=== PATIENT | male | born 1950 | race Caucasian/White ===

== ENCOUNTER 2020-04-29 11:56 | Inpatient (IN) | payer MEDICARE, OTHER, SELFPAY ==
--- NOTE | 2020-04-29 | CT_ITS ---
EXAMINATION: CT HEAD WITHOUT CONTRAST CLINICAL INFORMATION: Brain metastases. Altered mental status. COMPARISON: 04/05/2020 --none available at the time of dictation. TECHNIQUE: Contiguous axial imaging was performed from the skull base to vertex without intravenous administration of contrast. This CT examination was performed using dose optimization techniques as appropriate, variously including the following: *Automated exposure control *Adjustment of mA and/or kV according to patient size (this includes techniques or standardized protocols for targeted exams where dose is matched to indication/reason for exam; i.e. extremities or head) *Use of iterative reconstruction technique DLP: 760 mGy-cm FINDINGS: There is a metastasis within the right paracentral norman measuring 2.8 cm with surrounding edema, which extends into the bilateral brachii pontis, and superiorly into the midbrain, and right cerebral peduncle. The fourth ventricle is partially effaced. No herniation pattern. No additional metastasis present within the left parietal lobe. No additional lesions are identified. No acute intracranial hemorrhage. No herniation pattern. No extra-axial fluid collections. Apart from the fourth ventricle, the jugular system normal in size and configuration. The mastoid air cells and visualized portions of the paranasal sinuses are well aerated. IMPRESSION: No acute intracranial pathology. Intracranial metastases redemonstrated within the norman and left parietal lobe. No herniation pattern. An addendum will be issued when previous imaging becomes available for comparison.
[2020-04-29 12:03] VITALS: PULSE 118; RESP 20; TEMP 37.1; O2SAT 97; BMI 27.6
--- NOTE | 2020-04-29 12:49 | ECG_ITS ---
Test Reason : weakness Blood Pressure : / mmHG Vent. Rate : 100 BPM Atrial Rate : 100 BPM P-R Int : 108 ms QRS Dur : 088 ms QT Int : 340 ms P-R-T Axes : 055 025 059 degrees QTc Int : 438 ms Sinus tachycardia with short MS Possible Left atrial enlargement Borderline ECG When compared with ECG of 05-APR-2020 13:36, Heart rate has increased Referred By: Camelia Cruz Electronically Signed By:JEREMIAH GOMEZ MD
[2020-04-29 12:52] VITALS: BP 142/73; PULSE 101; RESP 13; TEMP 36.9; O2SAT 95
--- NOTE | 2020-04-29 12:52 | XR_ITS ---
EXAMINATION: XR CHEST CLINICAL INFORMATION: Lung cancer, weakness COMPARISON: 04/05/2020 TECHNIQUE: Frontal view of the chest was obtained. FINDINGS: Decreased lung volumes with an ill-defined opacity in the right lower lobe, possibly representing a developing pneumonia. There is a diffuse interstitial prominence which appears chronic and unchanged. No effusion. Stable cardiomediastinal silhouette. A small elongated density in the left upper lobe is less conspicuous. Mediastinal adenopathy appears to be significantly improved when compared to the CT from 01/17/2020 IMPRESSION: Subtle right lower lobe opacity concerning for developing pneumonia.
--- NOTE | 2020-04-29 12:55 | ED_ITS ---
HPI - Weakness General Chief complaint: Weakness Stated complaint: GENERAL WEAKNESS Time Seen by Provider: 04/29/20 12:15 Source: patient and family History of Present Illness HPI Narrative: 69-year-old male with a PMH COPD, squamous cell carcinoma of the lung with newly found brain lesions, presenting to the ED for increasing generalized weakness, confusion, inability to ambulate, and left-sided numbness x 2 days. History mostly obtained from who reports patient has been on steroids, denies recent fall/head trauma. patient receives chemotherapy here with Dr. De Los Santos, and is supposed to start radiation therapy at [facility] next week for newfound brain Mets. Denies fever, chills, cough, CP/ SOB, abdominal pain, nausea /vomiting Related Data Home Medications Medication Instructions Recorded Confirmed albuterol sulfate [Ventolin HFA] 2 puff INHALATION Q4H PRN 04/20/20 04/20/20 oxycodone 5 mg PO Q4H PRN 04/20/20 04/20/20 prochlorperazine maleate 10 mg PO Q6-8H PRN 04/20/20 04/20/20 [Compazine] Previous Rx's Medication Instructions Recorded dexamethasone [Decadron] 4 mg PO BID #60 tab 04/24/20 Allergies Allergy/AdvReac Type Severity Reaction Status Date / Time No Known Allergies Allergy Verified 04/29/20 12:03 [No Known Allergies*] Review of Systems Review of Systems: Constitutional: No Weight loss, No Fever, No Chills, No Night Sweats, + Fatigue, + Malaise Cardiovascular: No Chest Pain, No SOB, No Orthopnea Respiratory: No Cough, No Sputum, No Wheezing, N Gastrointestinal: No Nausea, No Vomiting, No Diarrhea, No Constipation, No abdominal Pain Genitourinary: No Dysuria, No Urinary Frequency, No Hematuria, Musculoskeletal: No joint pain, No Myalgias, No Joint Swelling Skin: No Skin Lesions, No rash Neuro: + confusion, + Weakness, + Numbness, No Paresthesias, No Loss of Consciousness, No Headache Yes all other systems are reviewed and are negative Neurologic: Reports confusion and Denies Sensory deficit (Neuro) Psychiatric: Psychiatric: Reports confusion PMFSH Past Medical History Attestation statement: The following information was validated with the patient. Source: old records reviewed and obtained from family Medical History (Updated 04/29/20 @ 15:48 by HERLINDA Bowen) Lung cancer Social History Social History Alcohol intake: never Smoking Status: Former smoker Use of substances other than those prescribed or required for medical reasons: No Advance Directives: Yes Advance Directives on File: Yes Advance Directives Date on File: 07/21/19 Physical Exam Vital Signs: Vital Signs: Vital Signs Temp Pulse Resp BP Pulse Ox 04/29/20 14:38 98 18 145/76 H 95 04/29/20 12:52 98.4 F 101 H 13 142/73 H 95 04/29/20 12:03 98.7 F 118 H 20 97 Body Mass Index 27.6 Const: General: confusion, lethargic and tired appearing Orientation/consciousness: patient oriented x3, confusion and lethargic HENMT: Head: Yes normal to inspection Ears: hearing grossly normal bilaterally General nose exam: Normal external nose present Face and sinus: Yes normal facial exam Eyes: General: appearance normal, both eyes and all related structures EOM: EOMs intact bilaterally Neck: Neck: Yes normal visual inspection Resp: Effort & Inspection: normal respiratory effort Auscultation: breath sounds absent ( bibasilar) Cardio: Rate: regular rate Heart sounds: S1 normal heart sound present and S2 normal heart sound present GI: Inspection: Yes normal to inspection Palpation (GI): Soft to palpation, nontender, no guarding and not rigid Skin: Wounds: no wounds Neuro: General: patient oriented x3, CN's II-XI intact bilaterally, confusion and Unable to assess gait Gait exam (Neuro): Unable to assess gait Motor exam (neuro): 5/5 motor strength present throughout Sensory Exam: No Sensory deficit (Neuro) Coordination: [id number] test normal Extrem: General: Yes normal to inspection Course Course Course Narrative: - 1347-- improved leukocytosis of 16.5 (patient is on steroids-- unlikely acute infection), platelets 155, labs otherwise unremarkable - 1416-- lactate 2.3 noted > do not believe patient has severe sepsis, but due to being elderly /immunocompromise state will cover with dose of IV Zosyn - 1534-- head CT without acute intracranial pathology. Intracranial metastasis redemonstrated no herniation pattern - chest x-ray concerning for subtle right lower lobe opacity > will admit. Patient is still not meeting sepsis criteria due to chronic leukocytosis / steroid use - obtained records from [facility] recent MRI showing to intracranial metastatic lesions which were responsive to initiation of steroids , and plan is to proceed with stereotactic radiation > oncology consulted - spoke to Dr. De Los Santos, recommended admission for IV antibiotics, and patient to follow up on Friday for radiation at [facility] - spoke to hospitalist about patient, will get chest CT and admit MDM - Weakness MDM Narrative Medical decision making narrative: 69-year-old male with a PMH COPD, squamous cell carcinoma of the lung with newly found brain lesions, presenting to the ED for increasing generalized weakness, confusion, inability to ambulate, and left- sided numbness x 2 days. On exam tachycardic, fatigued, +intermittently confu sed, no focal neuro deficits appreciated. Concern for worsening brain Mets/intracranial edema/ herniation vs ? infectious etiology. Low concern for severe sepsis at this time plan: EKG, labs, CXR, head CT, UA, consult oncology Differential Diagnosis Differential diagnosis: Likely UTI, hypoglycemia and dehydration Lab Data Result diagrams: 04/29/20 12:58 04/29/20 12:58 Labs: Lab Results 04/29/20 04/29/20 04/29/20 Range/Units 12:58 12:58 13:16 WBC 16.5 H (4.8-10.8) X10*3/uL RBC 5.24 (4.60-5.80) X10*6/uL Hgb 15.4 (14.0-18.0) g/dl Hct 45.3 (42-52) % MCV 86.5 (80-98) fL MCH 29.4 (27.0-33.0) pg MCHC 34.0 (31.0-36.0) g/dl RDW 18.3 H (11.0-16.0) % Plt Count 155 L D (160-400) X10*3/uL MPV 7.7 L (9.4-12.4) fL Immature Gran % (Auto) 3.1 H (0.0-0.4) % Neut % (Auto) 84.8 H (45-73) % Lymph % (Auto) 6.8 L (20-40) % [place] % (Auto) 5.1 (2-11) % Eos % (Auto) 0.0 (0-4) % Baso % (Auto) 0.2 (0-2) % Lymph # (Auto) 1.1 L (1.2-4.9) X10*3/uL [place] # (Auto) 0.8 (0.1-1.2) X10*3/uL Eos # (Auto) 0.0 (0.0-0.4) X10*3/uL Baso # (Auto) 0.0 (0.0-0.2) X10*3/uL Abs Immat Gran (auto) 0.51 H (0.00-0.03) X10*3/uL Absolute Neuts (auto) 14.0 H (2.0-8.3) X10*3/uL Absolute Nucleated RBC 0.000 (0.0-0.012) X10*3/uL Nucleated RBC % (auto) 0.0 (0.0-0.2) /100WBC Sodium 133 L (135-145) mmol/L Potassium 4.6 (3.3-5.1) mmol/l Chloride 98 (96-108) mmol/L Carbon Dioxide 24 (22-29) mmol/L Anion Gap 16 (12-20) BUN 29 H (9-16) mg/dL Creatinine 0.71 (0.5-1.4) mg/dL Estim Creat Clear Calc 89.1 Estimated GFR > 60 Random Glucose 116 H (60-115) mg/dL Lactic Acid 2.3 H* (0.5-2.0) mmol/L Calcium 8.2 L (8.4-10.2) mg/dL Magnesium 1.9 (1.6-2.6) mg/dL Total Bilirubin 0.9 (0.0-1.0) mg/dL Direct Bilirubin 0.3 (0.0-0.5) mg/dL AST 24 (5-37) U/L ALT 69 H (0-40) U/L Alkaline Phosphatase 89 (39-117) U/L Total Protein 5.8 L (6.5-8.0) g/dL Albumin 3.2 L (3.5-5.0) g/dL Discharge Plan Discharge Clinical Impression: Pneumonia Prescriptions: No Action prochlorperazine maleate [Compazine] 10 mg Tablet 10 mg PO Q6-8H PRN (Reason: Nausea And Vomiting) RF: 0 oxycodone 5 mg Tablet 5 mg PO Q4H PRN (Reason: Pain) RF: 0 albuterol sulfate [Ventolin HFA] 90 mcg/actuation Hfa Aerosol Inhaler 2 puff INHALATION Q4H PRN (Reason: Shortness Of Breath Or Wheezing) RF: 0 dexamethasone [Decadron] 4 mg Tablet 4 mg PO BID Qty: 60 RF: 3
[2020-04-29 13:02] LABS: MANUAL DIFF FLAG NO
[2020-04-29 13:21] LABS: Basophils Percent Auto 0.2 % (0-2); Hematocrit 45.3 % (42-52); Hemoglobin 15.4 g/dl (14.0-18.0); Imm Gran Abs Auto 0.51 X10*3/uL (0.00-0.03); Imm Gran Pct Auto 3.1 % (0.0-0.4); Lymphocytes Absolute Auto 1.1 X10*3/uL (1.2-4.9); Lymphocytes Percent Auto 6.8 % (20-40); Mean Corpuscular Hemoglobin 29.4 pg (27.0-33.0); Mean Corpuscular Volume 86.5 fL (80-98); Mean Platelet Volume 7.7 fL (9.4-12.4); Monocytes Absolute Auto 0.8 X10*3/uL (0.1-1.2); Monocytes Percent Auto 5.1 % (2-11); Neutrophils Percent Auto 84.8 % (45-73); Platelet Count 155 X10*3/uL (160-400); Red Blood Count 5.24 X10*6/uL (4.60-5.80); Red Cell Distribution Width 18.3 % (11.0-16.0); White Blood Count 16.5 X10*3/uL (4.8-10.8)
[2020-04-29 13:28] LABS: Alanine Aminotransferase 69 U/L (0-40); Albumin Level 3.2 g/dL (3.5-5.0); Alkaline Phosphatase 89 U/L (39-117); Anion Gap 16 (12-20); Aspartate Amino Transferase 24 U/L (5-37); Bilirubin Direct 0.3 mg/dL (0.0-0.5); Bilirubin Total 0.9 mg/dL (0.0-1.0); Blood Urea Nitrogen 29 mg/dL (9-16); Calcium 8.2 mg/dL (8.4-10.2); Carbon Dioxide 24 mmol/L (22-29); Chloride 98 mmol/L (96-108); Creatinine Clr Calc Pharmacy 89.1; Estimated Glomerular Filt Rate > 60; Glucose Random 116 mg/dL (60-115); Magnesium 1.9 mg/dL (1.6-2.6); Potassium 4.6 mmol/l (3.3-5.1); Sodium 133 mmol/L (135-145); Total Protein 5.8 g/dL (6.5-8.0)
[2020-04-29 14:06] LABS: Lactic Acid 2.3 mmol/L (0.5-2.0)
[2020-04-29] MEDS: 0.9 % Sodium Chloride 1,000 ML 999 ML IVCONT (14:36)
[2020-04-29] MEDS: Piperacillin Sodium/Tazobactam 3.375 GM in 0.9 % Sodium Chloride 50 ML IV ×2 (14:37→21:15)
[2020-04-29 14:38] VITALS: BP 145/76; PULSE 98; RESP 18; O2SAT 95
[2020-04-29 15:21] LABS: Reflex Lactate? Lactic Acid Added
--- NOTE | 2020-04-29 15:55 | PC.NURSE ---
PT SLEEPING BUT EASILY AROUSABLE TO VOICE COMMAND, REPORTS NO PAIN AT THIS TIME, PT HAVING A HARD TIME ANSWERING QUESTIONS NEEDS TIME TO THING ABOUT HIS ANSWER AND WHAT HE IS BEING ASKED, VS STABLE, NS ON THE MONITOR
--- NOTE | 2020-04-29 16:21 | CT_ITS ---
EXAMINATION: CT CHEST WITHOUT CONTRAST CLINICAL INFORMATION: Lung cancer, evaluate for pneumonia. COMPARISON: Chest radiograph earlier today along with CTA chest 01/17/2020. TECHNIQUE: Multidetector volumetric CT imaging of the chest was done. Axial MIP volume rendering provided. Sagittal and coronal reformatted images were obtained. This CT examination was performed using dose optimization techniques as appropriate, variously including the following: *Automated exposure control *Adjustment of mA and/or kV according to patient size (this includes techniques or standardized protocols for targeted exams where dose is matched to indication/reason for exam; i.e. extremities or head). *Use of iterative reconstruction technique. DLP: 235 mGy-cm FINDINGS: LUNGS: Again seen are emphysematous changes diffusely with honeycombing/bronchiectasis at the lung bases. Increased opacity is present at both lung bases, right greater than left, slightly worse than noted in December 2019. Superimposed infection, especially on the right cannot be excluded. The irregular mass in the superior segment of the left lobe of the liver has considerably improved now measuring only 0.7 x 1.2 cm compared with 2.5 cm on the 01/17/2020 study. This presumably was inflammatory. The underlying mass is currently the size it was on older CT studies. No new suspicious lung masses are seen. Quality of the exam is degraded by motion artifact. MEDIASTINUM: There has been a dramatic improvement in the mediastinal adenopathy with marked decrease in size of the extensive mass seen at that time. Abnormality remains with a large right paratracheal node, subcarinal node and some left perihilar disease although without IV contrast is difficult. The heart size is normal. PLEURA: There is no pleural effusion. No pleural mass or thickening. AXILLA: A left axillary lymph node has increased in size since the prior study when it was barely perceptible now measuring 1.5 x 1.2 x 1.7 cm. No fatty jong is seen. UPPER ABDOMEN: A 2.3 cm rounded left adrenal mass is no longer present. A right-sided adrenal mass has increased in size measuring 3.3 x 2.8 cm (previously 3.0 x 2.4 cm). OSSEOUS STRUCTURES: Unremarkable. IMPRESSION: 1. Emphysematous changes with honeycombing/bronchiectasis present at both lung bases. Patchy density seen at both lung bases but more so on the right and superimposed infection cannot be excluded. 2. Marked improvement in mediastinal mass and mediastinal adenopathy. 3. Mixed improvement with resolution of left adrenal mass and increase in size of right adrenal mass. 4. Increase in size of left axillary lymph node.
--- NOTE | 2020-04-29 18:17 | P.HPIM_ITS ---
History of Present Illness Date of Service: 04/29/20 <Joy Beck NP - Last Filed: 04/30/20 13:27> Chief Complaint: Confusion <Joy Beck NP - Last Filed: 04/30/20 13:27> 69 year old man presenting with weakness and confusion. 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 He underwent chemotherapy and is scheduled to have radiation at [facility] next week. His initial diagnosis was in July 2019 after staging revealed metastatic disease including adrenal metastasis. He has been undergone chemotherapy and is followed at [facility] hematology. He has been more weak and confused recently. He was unable to answer questions appropriately. Chest CT showing emphysematous changes with bronchiectasis and patchy density in both lung bases more so on the right and superimposed infection possible. He was not noted to be febrile on presentation. He did have a mildly elevated white blood cell count. He was given vancomycin and Zosyn. He will be admitted for further management and treatment of healthcare associated pneumonia with acute encephalopathy. <Joy Beck NP - Last Filed: 04/30/20 13:27> Review of Systems Review of Systems: Denies any recent fever chills or decrease in appetite respiratory denies any shortness of breath coverage production cardiovascular is adjustment of any PND or edema gastrointestinal denies any dysphagia abdominal pain nausea vomiting or diarrhea genitourinary denies any dysuria frequency or hematuria musculoskeletal denies any joint pain or swelling neuropsych denies any weakness or seizures all other systems reviewed are negative <Joy Beck NP - Last Filed: 04/30/20 13:27> Neurologic: Reports confusion and Denies Sensory deficit (Neuro) <Joy Beck NP - Last Filed: 04/30/20 13:27> Psychiatric: Psychiatric: Reports confusion <Joy Beck NP - Last Filed: 04/30/20 13:27> [facility] Medical History: Medical History (Updated 04/30/20 @ 13:13 by Joy Beck NP) COPD (chronic obstructive pulmonary disease) Lung cancer <Joy Beck NP - Last Filed: 04/30/20 13:27> Social History: Social History Household Members: Spouse Housing: House Alcohol intake: never Smoking Status: Former smoker Use of substances other than those prescribed or required for medical reasons: Unknown Currently Displaying Signs/Symptoms of Drug Intoxication Withdrawal: No Advance Directives: Yes Advance Directives on File: Yes Advance Directives Date on File: 07/21/19 Do you have thoughts of harming others: None Do you have a plan to hurt others: No Plan Recently lost weight without trying: No service: No Current occupational status: retired <Joy Beck NP - Last Filed: 04/30/20 13:27> Meds Allergies/Adverse reactions: Allergies Allergy/AdvReac Type Severity Reaction Status Date / Time No Known Allergies Allergy Verified 04/29/20 12:03 [No Known Allergies*] <Joy Beck NP - Last Filed: 04/30/20 13:27> Home medications: Home Medications Medication Instructions Recorded Confirmed Type albuterol sulfate [Ventolin HFA] 2 puff INHALATION Q4H PRN 04/20/20 04/20/20 History oxycodone 5 mg PO Q4H PRN 04/20/20 04/20/20 History prochlorperazine maleate 10 mg PO Q6-8H PRN 04/20/20 04/20/20 History [Compazine] ascorbic acid (vitamin C) 500 mg PO DAILY 04/29/20 04/29/20 History ferrous sulfate 325 mg PO DAILY 04/29/20 04/29/20 History omeprazole 20 mg PO BID 04/29/20 04/29/20 History <Joy Beck NP - Last Filed: 04/30/20 13:27> Physical Exam Vital Signs and Narrative: Vital Signs: Last Vital Signs Temp 98.4 F 04/29/20 12:52 Pulse 98 04/29/20 14:38 Resp 18 04/29/20 14:38 BP 145/76 H 04/29/20 14:38 Pulse Ox 95 04/29/20 14:38 Body Mass Index 27.6 <Joy Beck NP - Last Filed: 04/30/20 13:27> Appearing in no acute distress head is normocephalic atraumatic eyes pupils are PERRLA sclera is anicteric mouth throat mucous membranes are intact and moist neck is supple no lymphadenopathy, no JVD noted lung sounds are clear to auscultation heart regular rate rhythm, clear S1, S2 positive bowel sounds, abdomen is soft, nontender neuro patient is alert x3, no focal deficits <Joy Beck NP - Last Filed: 04/30/20 13:27> Const: General: confusion <Joy Beck NP - Last Filed: 04/30/20 13:27> Orientation/consciousness: confusion <Joy Beck NP - Last Filed: 04/30/20 13:27> Neuro: General: confusion <Joy Beck NP - Last Filed: 04/30/20 13:27> Sensory Exam: No Sensory deficit (Neuro) <Joy Beck NP - Last Filed: 04/30/20 13:27> Results Labs Labs: Laboratory Tests 04/29/20 04/29/20 04/29/20 12:58 12:58 13:16 WBC 16.5 H RBC 5.24 Hgb 15.4 Hct 45.3 MCV 86.5 MCH 29.4 MCHC 34.0 RDW 18.3 H Plt Count 155 L D MPV 7.7 L Immature Gran % (Auto) 3.1 H Neut % (Auto) 84.8 H Lymph % (Auto) 6.8 L Dawson % (Auto) 5.1 Eos % (Auto) 0.0 Baso % (Auto) 0.2 Lymph # (Auto) 1.1 L Dawson # (Auto) 0.8 Eos # (Auto) 0.0 Baso # (Auto) 0.0 Abs Immat Gran (auto) 0.51 H Absolute Neuts (auto) 14.0 H Absolute Nucleated RBC 0.000 Nucleated RBC % (auto) 0.0 Sodium 133 L Potassium 4.6 Chloride 98 Carbon Dioxide 24 Anion Gap 16 BUN 29 H Creatinine 0.71 Estim Creat Clear Calc 89.1 Estimated GFR > 60 Random Glucose 116 H Lactic Acid 2.3 H* Calcium 8.2 L Magnesium 1.9 Total Bilirubin 0.9 Direct Bilirubin 0.3 AST 24 ALT 69 H Alkaline Phosphatase 89 Total Protein 5.8 L Albumin 3.2 L <Joy Beck NP - Last Filed: 04/30/20 13:27> Assessment and Plan (1) HCAP (healthcare-associated pneumonia): Status: Acute <Joy Beck NP - Last Filed: 04/30/20 13:27> (2) Non-small cell lung cancer metastatic to brain: Status: Acute <Joy Beck NP - Last Filed: 04/30/20 13:27> 69-year-old man admitted with healthcare associated pneumonia. He has history of non-small cell lung cancer with recently found lesions in the brain. This may also be contributing to some of his confusion. Healthcare associated pneumonia. Treat with vancomycin, Zosyn due to recent admission to [facility]. Continue supplemental oxygen. Follow blood cultures. Encephalopathy. Possibly related to infection versus worsening malignant brain lesions. Follow neuro status. Non-small cell lung cancer with metastasis to the brain. Followed by hematology [facility]. Scheduled for radiation at [facility] next week. COPD. No exacerbation. Albuterol as needed. GERD. Continue PPI. DVT prophylaxis with Lovenox. Discussed with Dr. Michelle Full code <Joy Beck NP - Last Filed: 04/30/20 13:27>
[2020-04-29 18:56] VITALS: BP 140/80; PULSE 87; RESP 14; TEMP 36.7; O2SAT 96
--- NOTE | 2020-04-29 18:57 | PC.NURSE ---
Report received from Vivian SEQUEIRA, PCT at bedside to draw repeat lactic. [facility]
[2020-04-29 19:22] LABS: Lactic Acid 1.9 mmol/L (0.5-2.0)
[2020-04-29 20:00] VITALS: BP 150/72; PULSE 83; RESP 18; TEMP 36.6; O2SAT 95
--- NOTE | 2020-04-29 20:08 | PC.NURSE ---
Report to the floor.
[2020-04-29 20:59] LABS: Appearance Urine CLEAR; Color Urine YELLOW; Glucose Urine UA NEG (NEG); Leukocyte Esterase Urine NEG (NEG); Nitrite Urine NEG (NEG); Urine Blood NEG (NEG); Urine Ketones NEG (NEG); Urine Protein NEG (NEG-TRACE)
[2020-04-29] MEDS: Omeprazole 20 MG CAPSULE.DR PO (21:23)
[2020-04-29] MEDS: vancomycin HCL 1,000 MG in 0.9 % Sodium Chloride 250 ML 180 MG IV (21:49)
[2020-04-29 23:54] VITALS: BP 139/81; PULSE 76; RESP 16; TEMP 36.6; O2SAT 95
[2020-04-30] VITALS (7 sets, daily range): BP systolic 109–142; BP diastolic 60–70; PULSE 69–130; RESP 16–22; TEMP 36.3–37.7; O2SAT 90–95
[2020-04-30 06:03] LABS: MANUAL DIFF FLAG NO
[2020-04-30] MEDS: Piperacillin Sodium/Tazobactam 3.375 GM in 0.9 % Sodium Chloride 50 ML IV ×3 (06:05→20:08)
[2020-04-30 06:11] LABS: Basophils Percent Auto 0.1 % (0-2); Eosinophils Percent Auto 0.1 % (0-4); Hematocrit 41.6 % (42-52); Hemoglobin 13.9 g/dl (14.0-18.0); Imm Gran Abs Auto 0.27 X10*3/uL (0.00-0.03); Lymphocytes Absolute Auto 1.7 X10*3/uL (1.2-4.9); Lymphocytes Percent Auto 12.9 % (20-40); Mean Corpuscular HGB Conc 33.4 g/dl (31.0-36.0); Mean Corpuscular Volume 86.8 fL (80-98); Mean Platelet Volume 7.7 fL (9.4-12.4); Monocytes Absolute Auto 0.6 X10*3/uL (0.1-1.2); Monocytes Percent Auto 4.5 % (2-11); Neutrophils Absolute Auto 10.8 X10*3/uL (2.0-8.3); Neutrophils Percent Auto 80.4 % (45-73); Platelet Count 116 X10*3/uL (160-400); Red Blood Count 4.79 X10*6/uL (4.60-5.80); Red Cell Distribution Width 18.4 % (11.0-16.0); White Blood Count 13.4 X10*3/uL (4.8-10.8)
[2020-04-30 06:43] LABS: Anion Gap 12 (12-20); Blood Urea Nitrogen 20 mg/dL (9-16); Calcium 7.8 mg/dL (8.4-10.2); Carbon Dioxide 27 mmol/L (22-29); Chloride 97 mmol/L (96-108); Creatinine Clr Calc Pharmacy 105.5; Estimated Glomerular Filt Rate > 60; Glucose Random 80 mg/dL (60-115); Potassium 4.2 mmol/l (3.3-5.1); Sodium 132 mmol/L (135-145)
[2020-04-30] MEDS: vancomycin HCL 1,000 MG in 0.9 % Sodium Chloride 250 ML 180 MG IV ×2 (10:19→21:29)
[2020-04-30] MEDS: Omeprazole 20 MG CAPSULE.DR PO ×2 (10:19→20:08)
[2020-04-30] MEDS: Ferrous Sulfate 324 MG TABLET.DR PO (10:19)
[2020-04-30] MEDS: Ascorbic Acid 500 MG TABLET PO (10:19)
[2020-04-30 12:44] LABS: SARS COV2 PCR INHOUSE NEGATIVE (Negative)
[2020-04-30] MEDS: Enoxaparin Sodium 40 MG/0.4 ML SYRINGE SUBCUT (15:07)
--- NOTE | 2020-04-30 15:37 | P.EN_ITS ---
Event Note Event Note: 69 year old man presenting with weakness and confusion. 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 He underwent chemotherapy and is scheduled to have radiation at [facility] . patient was initially brought because of confusion but on admission does not look seems to be much confused to me ED physician wanted him to add be admitted for pneumonia: patient denies any cough or fever or chills patient has WBC count but seems like better than before, chest CT shows ques tion of pneumonia. discussed with the -seems confused than his the you were discussing the baseline. Physical exam: cvs: rrr, [id number] , no murmur res: clear to auscultation ,no rhonchii or wheezing abd: no rebound or guarding ,nt, bs present. ext pulses present , no cyanosis neuro: axo3 , nonfocal. assessment and plan coordinated in a and P note Plan is continue antibiotics, COVID testing
--- NOTE | 2020-04-30 15:59 | P.PNIM_ITS ---
Subjective Subjective Date of Service: 04/30/20 Interval History: pneumonia Review of Systems confusion seems to be improved, denies any chest pain or sob . Physical Exam Vital Signs: Vital Signs: Vital Signs Temp Pulse Resp BP Pulse Ox 04/30/20 15:38 97.9 F 123 H 18 115/60 95 04/30/20 11:58 99.1 F 113 H 20 133/67 94 04/30/20 08:00 97.9 F 90 20 131/61 93 04/30/20 04:00 97.4 F 69 16 142/70 H 04/30/20 02:00 74 16 131/70 95 04/29/20 23:54 97.8 F 76 16 139/81 95 04/29/20 20:00 97.9 F 83 18 150/72 H 95 04/29/20 18:56 98.1 F 87 14 140/80 H 96 Body Mass Index 27.6 cvs: rrr, [id number] , no murmur res: clear to auscultation ,no rhonchii or wheezing abd: no rebound or guarding ,nt, bs present. ext pulses present , no cyanosis neuro: axo3 , nonfocal. Objective Data Current Medications Generic Name Dose Route Start Last Admin Trade Name Freq PRN Reason Stop Dose Admin Ascorbic Acid 500 mg 04/30/20 09:00 04/30/20 10:19 Ascorbic Acid 500 Mg Tablet PO 500 mg DAILY ITA Administration Enoxaparin Sodium 40 mg 04/30/20 14:00 04/30/20 15:07 Enoxaparin Sodium 40 Mg/0.4 Ml Syringe SUBCUT 40 mg Q24H ITA Administration Ferrous Sulfate 324 mg 04/30/20 09:00 04/30/20 10:19 Ferrous Sulfate 324 Mg Tablet. PO 324 mg DAILY ITA Administration Piperacillin Sod/Tazobactam 50 mls @ 100 mls/hr 04/29/20 21:00 04/30/20 13:30 Sod 3.375 gm/ Sodium Chloride IV Infused Q8H ITA Infusion Vancomycin HCl 1,000 mg/ 270 mls @ 180 mls/hr 04/29/20 22:00 04/30/20 11:52 Sodium Chloride IV Infused Q12H ITA Infusion Omeprazole 20 mg 04/29/20 21:00 04/30/20 10:19 Omeprazole 20 Mg Capsule. PO 20 mg BID ITA Administration Labs CBC & Chem 7: 04/30/20 05:03 05/01/20 06:08 Microbiology Microbiology Results: Microbiology 04/29/20 13:16 Blood - Venous Blood Culture - Preliminary No growth after 24 hours. 04/29/20 13:16 Blood - Venous Blood Culture - Preliminary No growth after 24 hours. Assessment and Plan (1) HCAP (healthcare-associated pneumonia): Status: Acute (2) Non-small cell lung cancer metastatic to brain: Status: Acute Assessment and Plan: 69-year-old man admitted with healthcare associated pneumonia. He has history of non-small cell lung cancer with recently found lesions in the brain. This may also be contributing to some of his confusion. Healthcare associated pneumonia. on vancomycin, Zosyn due to recent admission to [facility]. Continue supplemental oxygen. Follow blood cultures. Encephalopathy. Possibly related to infection versus worsening malignant brain lesions. : seems confusion improving significantly. Non-small cell lung cancer with metastasis to the brain. Followed by hematology [facility]. Scheduled for radiation at [facility] next week. COPD. No exacerbation. Albuterol as needed. GERD. Continue PPI. DVT prophylaxis with Lovenox. (3) Pneumonia: Status: Acute
[2020-05-01 03:45] VITALS: BP 112/58; PULSE 99; RESP 18; TEMP 36.8; O2SAT 94
[2020-05-01] MEDS: Piperacillin Sodium/Tazobactam 3.375 GM in 0.9 % Sodium Chloride 50 ML IV ×2 (06:37→14:01)
[2020-05-01 07:23] LABS: Anion Gap 11 (12-20); Blood Urea Nitrogen 19 mg/dL (9-16); Calcium 7.5 mg/dL (8.4-10.2); Carbon Dioxide 26 mmol/L (22-29); Chloride 97 mmol/L (96-108); Creatinine Clr Calc Pharmacy 98.9; Estimated Glomerular Filt Rate > 60; Glucose Random 106 mg/dL (60-115); Potassium 3.4 mmol/l (3.3-5.1); Sodium 131 mmol/L (135-145)
[2020-05-01 07:43] VITALS: BP 112/56; PULSE 97; RESP 20; TEMP 37; O2SAT 96
[2020-05-01] MEDS: Omeprazole 20 MG CAPSULE.DR PO (09:32)
[2020-05-01] MEDS: Ferrous Sulfate 324 MG TABLET.DR PO (09:33)
[2020-05-01] MEDS: Ascorbic Acid 500 MG TABLET PO (09:33)
[2020-05-01] MEDS: vancomycin HCL 1,000 MG in 0.9 % Sodium Chloride 250 ML 180 MG IV ×2 (09:33→21:05)
--- NOTE | 2020-05-01 11:30 | MHC.CM.PN ---
pt lives c his in their home. she helps care for him at home and will provide transport home at me. pt is in active radiation tx for mets. he currently has no svcs in the home. this may change as his medical care progresses. at this time dc plan is for to return home c his . cm to cont. to follow.
[2020-05-01 11:48] VITALS: BP 117/52; PULSE 110; RESP 18; TEMP 37.6; O2SAT 94
[2020-05-01 12:21] LABS: MRSA Nasal PCR NEGATIVE (Negative); SA Nasal PCR NEGATIVE (Negative)
[2020-05-01] MEDS: Enoxaparin Sodium 40 MG/0.4 ML SYRINGE SUBCUT (14:01)
[2020-05-01] MEDS: Amoxicillin/Potassium Clav 875 MG TABLET PO ×2 (15:45→22:29)
[2020-05-01 16:00] VITALS: BP 124/76; PULSE 64; RESP 18; TEMP 36.6; O2SAT 97
--- NOTE | 2020-05-01 16:47 | P.DS_ITS ---
DS: Providers Provider Date of admission: 04/29/20 19:25 Primary care physician: None Physician Consults: 05/01/20 13:31 Consult to Infectious Diseases Routine Consulting Provider: Chandu Ortez Reason for consultation: PNEUMONIA Has provider been notified: No DS: Diagnosis Discharge Diagnosis (1) Pneumonia: Status: Acute DS: Summary Hospital Course Hospital Course: HPI: 69-year-old male with a PMH COPD, squamous cell carcinoma of the lung with newly found brain lesions, presenting to the ED for increasing generalized weakness, confusion, inability to ambulate, and left-sided numbness x 2 days. History mostly obtained from who reports patient has been on steroids, denies recent fall/head trauma. patient receives chemotherapy here with Dr. De Los Santos, and is supposed to start radiation therapy at [facility] next week for newfound brain Mets. Denies fever, chills, cough, CP/ SOB, abdominal pain, nausea /vomiting. hospital course probable berman section: 69-year-old man admitted with possible pneumonia. He has history of non-small cell lung cancer with recently found lesions in the brain Follows in [facility] for radiation as well as oncology doctor noam. initially also had question of toxic metabolic encephalopathy question related to pneumonia. patient was initially started on IV Vanco and Zosyn - is WBC count seems improved, no no cough or phlegm or any respiratory symptoms. mother has fevers significant. blood culture pending with above antibiotic management patient seems improved- his mental status seems to be fine since the beginning, discussed with his to that just to make sure that he is at baseline, she concur that he is at baseline . discussed with infectious disease patient's antibiotics changed to p.o. doxycycline and Augmentin -please complete the course. Non-small cell lung cancer with metastasis to the brain. Followed by hematology With Dr. De Los Santos and [facility]. mild hyponatremia / slightly elevated ALT: Monitor renal function and elect rolytes as well as LFTs outpatient with PCP further management as per PCP. Time Spent with Patient Time attestation: Total time spent providing and/or coordinating discharge services:50 min Physical Exam Vital Signs: Vital Signs: Vital Signs Temp Pulse Resp BP Pulse Ox 05/01/20 16:00 97.9 F 64 18 124/76 97 05/01/20 11:48 99.7 F 110 H 18 117/52 L 94 05/01/20 07:43 98.6 F 97 20 112/56 L 96 05/01/20 03:45 98.3 F 99 18 112/58 L 94 04/30/20 23:32 97.8 F 106 H 20 109/62 93 04/30/20 19:08 100 F 130 H 19 118/67 90 L Body Mass Index 27.6 Physical exam: cvs: rrr, [id number] , no murmur res: clear to auscultation ,no rhonchii or wheezing abd: no rebound or guarding ,nt, bs present. ext pulses present , no cyanosis neuro: axo3 , nonfocal. DS: Data Data Completed and Pending Labs on day of discharge: Labs from last 24 hours 05/01/20 05/01/20 05/01/20 10:08 09:10 06:08 Sodium 131 L Potassium 3.4 Chloride 97 Carbon Dioxide 26 Anion Gap 11 L BUN 19 H Creatinine 0.64 Estim Creat Clear Calc 98.9 Estimated GFR > 60 Random Glucose 106 Calcium 7.5 L Nasal Screen MRSA (PCR) NEGATIVE Nasal S. aureus Screen NEGATIVE Nasal MRSA/S.aureus Interp SEE NOTE Vancomycin Trough 7.0 L Preliminary micro results at discharge 04/29/20 13:16 Blood Culture - Preliminary Blood - Venous No growth after 48 hours. 04/29/20 13:16 Blood Culture - Preliminary Blood - Venous No growth after 48 hours. Discharge Plan Discharge Patient Disposition: Home Health Service Referrals: [facility] [Outside] Physician,None [Primary Care Provider] - Discharge Medications: New doxycycline monohydrate 100 mg capsule 100 mg PO BID Qty: 14 RF: 0 amoxicillin-pot clavulanate [Augmentin] 875-125 mg tablet 1 tab PO Q12H Qty: 14 RF: 0 Continued prochlorperazine maleate [Compazine] 10 mg Tablet 10 mg PO Q6-8H PRN (Reason: Nausea And Vomiting) RF: 0 oxycodone 5 mg Tablet 5 mg PO Q4H PRN (Reason: Pain) RF: 0 albuterol sulfate [Ventolin HFA] 90 mcg/actuation Hfa Aerosol Inhaler 2 puff INHALATION Q4H PRN (Reason: Shortness Of Breath Or Wheezing) RF: 0 dexamethasone [Decadron] 4 mg Tablet 4 mg PO BID Qty: 60 RF: 3 ascorbic acid (vitamin C) 500 mg Tablet 500 mg PO DAILY RF: 0 ferrous sulfate 325 mg (65 mg iron) Tablet 325 mg PO DAILY RF: 0 omeprazole 20 mg Capsule,Delayed Release(Dr/Ec) 20 mg PO BID RF: 0 Discharge Orders: Discharge Order (Routine); Ordered 05/01/20 Ordered By: Dedrick Michelle Diet: advance to your usual diet Activity on Discharge: As tolerated Visit Report Forms: Patient Portal Discharge page Care Plan Goals: patient was initially admitted due to question of confusion and pneumonia: Subsequently started on IV antibiotics -significantly improved afterwards patient. switched to po doxycycline and augmentin-please complete course of antibiotics. Health Concerns: as above. Plan of Treatment: as above.
[2020-05-01 19:36] VITALS: BP 110/55; PULSE 113; RESP 20; TEMP 38; O2SAT 92
[2020-05-01 23:05] VITALS: BP 116/56; PULSE 101; RESP 18; TEMP 36.2; O2SAT 92
[2020-05-02 03:15] VITALS: BP 109/54; PULSE 100; RESP 16; TEMP 36.4; O2SAT 92
[2020-05-02 08:00] VITALS: BP 131/61; PULSE 98; RESP 18; TEMP 36.2; O2SAT 94
[2020-05-02] MEDS: Amoxicillin/Potassium Clav 875 MG TABLET PO (09:29)
[2020-05-02] MEDS: Omeprazole 20 MG CAPSULE.DR PO (09:29)
[2020-05-02] MEDS: Ferrous Sulfate 324 MG TABLET.DR PO (09:29)
[2020-05-02] MEDS: Ascorbic Acid 500 MG TABLET PO (09:29)
--- NOTE | 2020-05-02 10:24 | MHC.CM.PN ---
CM met with and patient at the bedside who reports patient lives with son and who reports son and live with patient and help take care of him. Patient is also active with [facility]. Son Bubba reports he is able to transport patient to and from radiation treatment. Bubba will be here today at 12pm for discharge and transport to [facility] for radiation treatment. Patient, , son and nurse are all updated to discharge plan.
--- NOTE | 2020-05-02 12:26 | W.PM.IDCN ---
History of Present Illness Data of Consult Service Date: 05/02/20 Requesting physician: Dedrick Michelle Primary Care Provider: None Physician HPI Reason for consult: shortness of breath He presents 3 days ago with weakness and confusion He has known squamous cell cancer from lung with mets to brain He has some dry cough He has some fever or chills at home He presents and has CT scan of chest showing some bibasilar infiltrates He was started on Vancomycin and Zosyn,stop Vancomycin as MRSA is negative nasal Review of Systems Review of Systems: Yes all other systems are reviewed and are negative Neurologic: Reports confusion and Denies Sensory deficit (Neuro) Psychiatric: Psychiatric: Reports confusion PMFSH Past Medical History Medical History COPD (chronic obstructive pulmonary disease) Lung cancer Family History Family history: reviewed and not pertinent Social History Social History Household Members: Spouse Housing: House Alcohol intake: never Smoking Status: Former smoker Use of substances other than those prescribed or required for medical reasons: Unknown Currently Displaying Signs/Symptoms of Drug Intoxication Withdrawal: No Advance Directives: Yes Advance Directives on File: Yes Advance Directives Date on File: 07/21/19 Do you have thoughts of harming others: None Do you have a plan to hurt others: No Plan Recently lost weight without trying: No service: No Current occupational status: retired Meds Allergies Allergy/AdvReac Type Severity Reaction Status Date / Time No Known Allergies Allergy Verified 04/29/20 12:03 [No Known Allergies*] Home Medications Medication Instructions Recorded Confirmed Type albuterol sulfate [Ventolin HFA] 2 puff INHALATION Q4H PRN 04/20/20 04/20/20 History oxycodone 5 mg PO Q4H PRN 04/20/20 04/20/20 History prochlorperazine maleate 10 mg PO Q6-8H PRN 04/20/20 04/20/20 History [Compazine] ascorbic acid (vitamin C) 500 mg PO DAILY 04/29/20 04/29/20 History ferrous sulfate 325 mg PO DAILY 04/29/20 04/29/20 History omeprazole 20 mg PO BID 04/29/20 04/29/20 History Physical Exam Vital Signs: Vital Signs: Vital Signs Temp Pulse Resp BP Pulse Ox 05/02/20 08:00 97.1 F 98 18 131/61 94 05/02/20 03:15 97.5 F 100 16 109/54 L 92 05/01/20 23:05 97.2 F 101 H 18 116/56 L 92 05/01/20 19:36 100.4 F 113 H 20 110/55 L 92 05/01/20 16:00 97.9 F 64 18 124/76 97 Body Mass Index 27.6 Const: General: confusion Orientation/consciousness: confusion HENMT: Head: Yes normal to inspection Teeth and gingiva: abnormal tooth and associated gingiva Throat: Yes posterior oropharynx normal Resp: Auscultation: rhonchi lower bilaterally Cardio: Rate: regular rate Rhythm: regular rhythm GI: Inspection: Yes normal to inspection Neuro: General: confusion Sensory Exam: No Sensory deficit (Neuro) Extrem: General: Yes normal to inspection Psych: Appearance: grossly normal Affect: normal affect Attitude: cooperative Thought process: Normal thought process present Assessment and Plan (1) HCAP (healthcare-associated pneumonia): Status: Acute (2) Non-small cell lung cancer metastatic to brain: Status: Acute (3) Pneumonia: Status: Acute There is concern over gram negative,anerobes and less likely gram positive He has basilar infilrates There is less likely fungal infection He is improving on IV Zosyn and Vancomycin Suggest Po Augmentin and Doxycycline for a week F/U per Oncology
== END 2020-05-02 12:23 | disposition home health service (06) | DRG 194 ==
LOC: HO.ED 16:56 → HO.IMC 19:52
PROVIDERS: Emergency Medicine Emergency Medical Services; Nurse Practitioner Acute Care; Physician Assistant; Admitting Provider Internal Medicine; Emergency Provider Emergency Medicine; Visit Provider Internal Medicine
DX: J18.9 Pneumonia, unspecified organism (principal); C34.90 Malignant neoplasm of unspecified part of unspecified bronchus or lung; C79.31 Secondary malignant neoplasm of brain; C79.70 Secondary malignant neoplasm of unspecified adrenal gland; E87.1 Hypo-osmolality and hyponatremia; J44.9 Chronic obstructive pulmonary disease, unspecified; Z20.828 Contact with and (suspected) exposure to other viral communicable diseases; K21.9 Gastro-esophageal reflux disease without esophagitis; Z79.891 Long term (current) use of opiate analgesic; Z79.899 Other long term (current) drug therapy
CPT/HCPCS: 36415; 70450; 71045; 71250; 80048; 80076; 80202; 81003; 83605; 83735; 85025; 87040; 87635; 87640; 87641; 93005; 96365; 99285; J1650

== ENCOUNTER 2020-05-15 14:14 | Inpatient (IN) | payer MEDICARE, OTHER, SELFPAY ==
[2020-05-15 14:42] VITALS: BP 137/83; PULSE 103; RESP 18; TEMP 36.6; O2SAT 95; BMI 21.8
--- NOTE | 2020-05-15 14:50 | ED_ITS ---
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 Mode of arrival: ambulatory Limitations: no limitations History of Present Illness MD complaint: weakness, constipation, lower abdominal pain Onset (ago): day(s) (2) Location: abdomen Radiation: non-radiation Severity: moderate Quality: aching Pain Consistency: constant Relieving factors: none Exacerbating factors: none Associated symptoms: loss of appetite, malaise and weakness Treatments prior to arrival: other (just had radiation today - has lung cancer with mets to the brain) Related Data Home Medications Medication Instructions Recorded Confirmed albuterol sulfate [Ventolin HFA] 2 puff INHALATION Q4H PRN 04/20/20 04/20/20 oxycodone 5 mg PO Q4H PRN 04/20/20 04/20/20 prochlorperazine maleate 10 mg PO Q6-8H PRN 04/20/20 04/20/20 [Compazine] ascorbic acid (vitamin C) 500 mg PO DAILY 04/29/20 04/29/20 ferrous sulfate 325 mg PO DAILY 04/29/20 04/29/20 omeprazole 20 mg PO BID 04/29/20 04/29/20 Previous Rx's Medication Instructions Recorded dexamethasone [Decadron] 4 mg PO BID #60 tab 04/24/20 amoxicillin-pot clavulanate 1 tab PO Q12H #14 tab 05/01/20 [Augmentin] doxycycline monohydrate 100 mg PO BID #14 cap 05/01/20 Allergies Allergy/AdvReac Type Severity Reaction Status Date / Time No Known Allergies Allergy Verified 04/29/20 12:03 [No Known Allergies*] Review of Systems Review of Systems: Constitutional : No Weight loss, No Fever, No Chills ENT/Mouth : No sore throat, No Rhinorrhea Eyes: No Swelling, No Redness Cardiovascular : No Chest Pain, No SOB, NoEdema Respiratory : No Cough, No Sputum, No Wheezing Gastrointestinal : Positive Nausea, no Vomiting, no Diarrhea, positive abdominal Pain, No Hematochezia, No Melena, positive constipation Genitourinary : No Dysuria, No Urinary Frequency, No Hematuria, No Urgency Musculoskeletal : No joint pain, No Myalgias, No Joint Swelling Skin : No Skin Lesions, No rash Neuro : No Weakness, No Numbness, No Dizziness, No Headache Psych : No Anxiety/Panic, No Depression Heme/Lymph: No Bruising, No Lymphadenopathy Endocrine : No Polyuria, No Polydipsia All other systems reviewed and are negative. [facility] Past Medical History Medical History COPD (chronic obstructive pulmonary disease) HCAP (healthcare-associated pneumonia) Lung cancer Non-small cell lung cancer metastatic to brain Social History Social History Household Members: Spouse Housing: House Alcohol intake: never Smoking Status: Former smoker Advance Directives: Yes Advance Directives on File: Yes Advance Directives Date on File: 07/21/19 service: No Current occupational status: retired Physical Exam Vital Signs: Vital Signs: Vital Signs Temp Pulse Resp BP Pulse Ox 05/15/20 15:59 16 05/15/20 14:42 97.8 F 103 H 18 137/83 95 Body Mass Index 21.8 Appearance: Alert. Oriented X3. Mild acute distress. Eyes: Pupils equal, round and reactive to light. ENT: Pharynx severely dry MM Neck: Normal inspection. Neck supple. CVS: Normal heart rate and rhythm. Pulses normal. Respiratory: No respiratory distress. Breath sounds normal. Abdomen: Soft and distended, lower abdominal ttp, no rebound or guarding Skin: Skin warm and dry. Normal skin color. Normal skin turgor. Extremities: No lower extremity edema. No calf ttp Neuro: Oriented X 3. No motor deficit. No sensory deficit. Course Course Course Narrative: patient pending workup, signed out to Dr. Ariza pending labs and CT scan Medical Decision Making [facility] Narrative Medical decision making narrative: 69 yo male with lung cancer and mets to the brain just underwent radiation today comes in with weakness, lower abdominal pain and constipation - IVF, IV morphine, labs, cultures, CT scan of abdomen ordered, dispo per results and findings Lab Data Result diagrams: 05/15/20 15:52 05/15/20 15:52 Labs: Lab Results 05/15/20 Range/Units 15:52 WBC 12.4 H (4.8-10.8) X10*3/uL RBC 5.38 (4.60-5.80) X10*6/uL Hgb 15.7 (14.0-18.0) g/dl Hct 45.9 (42-52) % MCV 85.3 (80-98) fL MCH 29.2 (27.0-33.0) pg MCHC 34.2 (31.0-36.0) g/dl RDW 15.7 (11.0-16.0) % Plt Count 138 L (160-400) X10*3/uL MPV 7.8 L (9.4-12.4) fL Immature Gran % (Auto) 4.2 H (0.0-0.4) % Neut % (Auto) 73.7 H (45-73) % Lymph % (Auto) 12.6 L (20-40) % Wallace % (Auto) 9.2 (2-11) % Eos % (Auto) 0.0 (0-4) % Baso % (Auto) 0.3 (0-2) % Lymph # (Auto) 1.6 (1.2-4.9) X10*3/uL Wallace # (Auto) 1.1 (0.1-1.2) X10*3/uL Eos # (Auto) 0.0 (0.0-0.4) X10*3/uL Baso # (Auto) 0.0 (0.0-0.2) X10*3/uL Abs Immat Gran (auto) 0.52 H (0.00-0.03) X10*3/uL Absolute Neuts (auto) 9.2 H (2.0-8.3) X10*3/uL Absolute Nucleated RBC 0.000 (0.0-0.012) X10*3/uL Nucleated RBC % (auto) 0.0 (0.0-0.2) /100WBC ECG Data Attestation: I personally reviewed and interpreted this ECG as follows: Interpretation: Rate: 100 Rhythm: NSR. [place]: normal Normal P waves. Normal REED. Normal QRS complex. ST T wave : nonspecific qTC: normal prior studies: artifact present, no acute ischemia The study has been interpreted contemporaneously by me. . Discharge Plan Discharge Clinical Impression: Abdominal pain Prescriptions: No Action prochlorperazine maleate [Compazine] 10 mg Tablet 10 mg PO Q6-8H PRN (Reason: Nausea And Vomiting) RF: 0 oxycodone 5 mg Tablet 5 mg PO Q4H PRN (Reason: Pain) RF: 0 albuterol sulfate [Ventolin HFA] 90 mcg/actuation Hfa Aerosol Inhaler 2 puff INHALATION Q4H PRN (Reason: Shortness Of Breath Or Wheezing) RF: 0 dexamethasone [Decadron] 4 mg Tablet 4 mg PO BID Qty: 60 RF: 3 ascorbic acid (vitamin C) 500 mg Tablet 500 mg PO DAILY RF: 0 ferrous sulfate 325 mg (65 mg iron) Tablet 325 mg PO DAILY RF: 0 omeprazole 20 mg Capsule,Delayed Release(Dr/Ec) 20 mg PO BID RF: 0 doxycycline monohydrate 100 mg capsule 100 mg PO BID Qty: 14 RF: 0 amoxicillin-pot clavulanate [Augmentin] 875-125 mg tablet 1 tab PO Q12H Qty: 14 RF: 0
--- NOTE | 2020-05-15 14:51 | CT_ITS ---
EXAMINATION: CT ABDOMEN AND PELVIS WITHOUT CONTRAST CLINICAL INFORMATION: Constipation. Abdominal pain.. Neoplasm left lower lobe. Metastatic nodule in the left adrenal gland COMPARISON: Multiple prior studies including PET/CT study 08/10/2019. CT scan abdomen pelvis 08/02/2019 TECHNIQUE: Multidetector volumetric imaging was performed from the superior aspect of the liver through the pubic symphysis. Sagittal and coronal reformatted images were obtained on the technologist's workstation. This CT examination was performed using dose optimization techniques as appropriate, variously including the following: *Automated exposure control *Adjustment of mA and/or kV according to patient size (this includes techniques or standardized protocols for targeted exams where dose is matched to indication/reason for exam; i.e. extremities or head) *Use of iterative reconstruction technique DLP: 432 mGy-cm FINDINGS: LUNG BASES: Focal consolidation at the anterior right lung base similar CT chest 04/29/2020. Bibasilar honeycombing at lung bases posteriorly similar prior study. LIVER, GALLBLADDER, AND BILIARY TREE: The liver is normal in size, shape, and attenuation. No focal hepatic lesion or biliary ductal dilatation is present. The gallbladder is unremarkable with no evidence of radiopaque gallstones, gallbladder wall thickening, or obvious pericholecystic inflammatory changes. PANCREAS: Unremarkable. SPLEEN: Unremarkable. ADRENAL GLANDS: Right adrenal gland is enlarged. The right adrenal gland measures 3.5 x 3 cm axial image 24 series 3. The right degenerative gland is normal in size on the CAT scan of 08/10/2019 PET/CT exam. Right adrenal gland has not significantly changed in size since 04/29/2020 CT of chest. No mass in the left adrenal gland. KIDNEYS AND URETERS: The kidneys are normal in size, shape, and attenuation. No hydronephrosis, hydroureter, or calculi seen. No perinephric stranding. BLADDER: Unremarkable. GASTROINTESTINAL TRACT: Large volume of stool in the distal rectum sigmoid. Rectosigmoid distended to a diameter 7.5 cm to the level the hips. There is no edema of the wall the rectum and sigmoid and no edema in the presacral space to suggest stercoral colitis. There is a large volume of stool throughout the remainder the colon as well. No acute change of the bowel wall. No bowel obstruction. The appendix is normal. The small bowel loops are normal. ABDOMINAL WALL: No significant hernia is appreciated. LYMPH NODES: Normal. VASCULAR: Scattered vascular calcifications throughout the abdomen and pelvis. 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 OSSEOUS STRUCTURES: Unremarkable. CT/CT abdomen pelvis wo con IMPRESSION: 1. Stable enlarged right adrenal gland consistent with metastatic disease. 2. Large volume of stool in the colon. No acute change of the bowel wall. No bowel obstruction. 3. Stable focal consolidation at the anterior right lung base. Honeycombing at lung bases bilaterally.
--- NOTE | 2020-05-15 14:52 | ECG_ITS ---
Test Reason : WEAKNESS Blood Pressure : / mmHG Vent. Rate : 100 BPM Atrial Rate : 100 BPM P-R Int : 112 ms QRS Dur : 088 ms QT Int : 346 ms P-R-T Axes : 065 008 086 degrees QTc Int : 446 ms Sinus tachycardia Nonspecific T wave abnormality Lateral leads Low voltage QRS Abnormal ECG When compared with ECG of 29-APR-2020 14:13, Nonspecific T wave abnormality now evident in Lateral leads Referred By: Preethi Burks Electronically Signed By:JEREMIAH GOMEZ MD
--- NOTE | 2020-05-15 14:53 | XR_ITS ---
EXAMINATION: XR CHEST CLINICAL INFORMATION: Cough and weakness. COMPARISON: None TECHNIQUE: Frontal view of the chest was obtained. FINDINGS: No significant abnormality is noted involving the heart, lungs, mediastinum, bony thorax or soft tissues. XR/XR chest 1V IMPRESSION: Unremarkable chest exam.
[2020-05-15] MEDS: 0.9 % Sodium Chloride 1,000 ML 999 ML IVCONT ×2 (15:56→17:15)
[2020-05-15 15:59] VITALS: RESP 16
[2020-05-15] MEDS: Morphine Sulfate 4 MG/ML CARTRIDGE IVPUSH (15:59)
[2020-05-15] MEDS: ondansetron HCL 4 MG/2 ML VIAL IVPUSH (15:59)
[2020-05-15 16:01] LABS: MANUAL DIFF FLAG NO
[2020-05-15 16:04] LABS: Basophils Percent Auto 0.3 % (0-2); Hematocrit 45.9 % (42-52); Hemoglobin 15.7 g/dl (14.0-18.0); Imm Gran Abs Auto 0.52 X10*3/uL (0.00-0.03); Imm Gran Pct Auto 4.2 % (0.0-0.4); Lymphocytes Absolute Auto 1.6 X10*3/uL (1.2-4.9); Lymphocytes Percent Auto 12.6 % (20-40); Mean Corpuscular HGB Conc 34.2 g/dl (31.0-36.0); Mean Corpuscular Hemoglobin 29.2 pg (27.0-33.0); Mean Corpuscular Volume 85.3 fL (80-98); Mean Platelet Volume 7.8 fL (9.4-12.4); Monocytes Absolute Auto 1.1 X10*3/uL (0.1-1.2); Monocytes Percent Auto 9.2 % (2-11); Neutrophils Absolute Auto 9.2 X10*3/uL (2.0-8.3); Neutrophils Percent Auto 73.7 % (45-73); Platelet Count 138 X10*3/uL (160-400); Red Blood Count 5.38 X10*6/uL (4.60-5.80); Red Cell Distribution Width 15.7 % (11.0-16.0); White Blood Count 12.4 X10*3/uL (4.8-10.8)
[2020-05-15 16:21] LABS: INTERNATIONAL NORM RATIO 1.1 (0.9-1.1); Prothrombin Time 12.8 SEC (10.8-13.0)
[2020-05-15 16:25] LABS: Anion Gap 14 (12-20); Blood Urea Nitrogen 26 mg/dL (9-16); Calcium 8.3 mg/dL (8.4-10.2); Carbon Dioxide 26 mmol/L (22-29); Chloride 95 mmol/L (96-108); Creatinine Clr Calc Pharmacy 104.5; Estimated Glomerular Filt Rate > 60; Glucose Random 110 mg/dL (60-115); Potassium 4.2 mmol/l (3.3-5.1); Sodium 131 mmol/L (135-145)
[2020-05-15 16:29] LABS: Partial Thromboplastin Time 23.5 SEC (24.1-38.0)
[2020-05-15 16:35] LABS: Lactic Acid 2.2 mmol/L (0.5-2.0)
[2020-05-15 16:37] LABS: Troponin-I High Sensitivity 9.4 ng/L (<3.5-35.0)
[2020-05-15 16:47] LABS: Alanine Aminotransferase 65 U/L (0-40); Albumin Level 3.3 g/dL (3.5-5.0); Alkaline Phosphatase 107 U/L (39-117); Aspartate Amino Transferase 26 U/L (5-37); Bilirubin Direct 0.4 mg/dL (0.0-0.5); Bilirubin Total 1.2 mg/dL (0.0-1.0); Lipase 37 U/L (8-78); Magnesium 2.1 mg/dL (1.6-2.6); Total Protein 6.2 g/dL (6.5-8.0)
[2020-05-15 17:58] LABS: Reflex Lactate? Lactic Acid Added
[2020-05-15 17:59] VITALS: BP 140/75; PULSE 81; RESP 14; TEMP 36.5; O2SAT 96
--- NOTE | 2020-05-15 18:57 | ED.GENADULT ---
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 Mode of arrival: ambulatory Limitations: no limitations History of Present Illness Location: abdomen Quality: aching Relieving factors: none Exacerbating factors: none Associated symptoms: loss of appetite, malaise and weakness Treatments prior to arrival: other (just had radiation today - has lung cancer with mets to the brain) Related Data Home Medications Medication Instructions Recorded Confirmed albuterol sulfate [Ventolin HFA] 2 puff INHALATION Q4H PRN 04/20/20 05/15/20 oxycodone 5 mg PO Q4H PRN 04/20/20 05/15/20 prochlorperazine maleate 10 mg PO Q6H PRN 04/20/20 05/15/20 [Compazine] ascorbic acid (vitamin C) 500 mg PO DAILY 04/29/20 05/15/20 ferrous sulfate 325 mg PO DAILY 04/29/20 05/15/20 omeprazole 20 mg PO BID@0630,1630 04/29/20 05/15/20 dexamethasone [Decadron] 2 mg PO BID 05/15/20 05/15/20 Allergies Allergy/AdvReac Type Severity Reaction Status Date / Time No Known Allergies Allergy Verified 04/29/20 12:03 [No Known Allergies*] [facility] Past Medical History Medical History COPD (chronic obstructive pulmonary disease) HCAP (healthcare-associated pneumonia) Lung cancer Non-small cell lung cancer metastatic to brain Social History Social History Household Members: Spouse Housing: House Alcohol intake: never Smoking Status: Former smoker Use of substances other than those prescribed or required for medical reasons: No Advance Directives: Yes Advance Directives on File: Yes Advance Directives Date on File: 07/21/19 service: No Current occupational status: retired Physical Exam Vital Signs: Vital Signs: Vital Signs Temp Pulse Resp BP Pulse Ox 05/15/20 20:00 98 F 90 18 130/64 94 05/15/20 17:59 97.7 F 81 14 140/75 H 96 05/15/20 15:59 16 05/15/20 14:42 97.8 F 103 H 18 137/83 95 Body Mass Index 21.8 Course Course Course Narrative: 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 Rectal exam showed soft stool lying in the rectum. Patient has elevated lactic acid 2.2 which is type B , patient is not septic patient feels very weak unable to ambulate or sit in the bed even without any help will give him Fleet enema plan to admit for increased lethargic and failure to thrive Medical Decision Making Lab Data Result diagrams: 05/15/20 15:52 05/15/20 15:52 Labs: Lab Results 05/15/20 05/15/20 05/15/20 Range/Units 15:52 15:52 15:52 WBC 12.4 H (4.8-10.8) X10*3/uL RBC 5.38 (4.60-5.80) X10*6/uL Hgb 15.7 (14.0-18.0) g/dl Hct 45.9 (42-52) % MCV 85.3 (80-98) fL MCH 29.2 (27.0-33.0) pg MCHC 34.2 (31.0-36.0) g/dl RDW 15.7 (11.0-16.0) % Plt Count 138 L (160-400) X10*3/uL MPV 7.8 L (9.4-12.4) fL Immature Gran % (Auto) 4.2 H (0.0-0.4) % Neut % (Auto) 73.7 H (45-73) % Lymph % (Auto) 12.6 L (20-40) % [place] % (Auto) 9.2 (2-11) % Eos % (Auto) 0.0 (0-4) % Baso % (Auto) 0.3 (0-2) % Lymph # (Auto) 1.6 (1.2-4.9) X10*3/uL [place] # (Auto) 1.1 (0.1-1.2) X10*3/uL Eos # (Auto) 0.0 (0.0-0.4) X10*3/uL Baso # (Auto) 0.0 (0.0-0.2) X10*3/uL Abs Immat Gran (auto) 0.52 H (0.00-0.03) X10*3/uL Absolute Neuts (auto) 9.2 H (2.0-8.3) X10*3/uL Absolute Nucleated RBC 0.000 (0.0-0.012) X10*3/uL Nucleated RBC % (auto) 0.0 (0.0-0.2) /100WBC PT 12.8 (10.8-13.0) SEC INR 1.1 (0.9-1.1) APTT 23.5 L (24.1-38.0) SEC Sodium 131 L (135-145) mmol/L Potassium 4.2 D (3.3-5.1) mmol/l Chloride 95 L (96-108) mmol/L Carbon Dioxide 26 (22-29) mmol/L Anion Gap 14 (12-20) BUN 26 H (9-16) mg/dL Creatinine 0.65 (0.5-1.4) mg/dL Estim Creat Clear Calc 104.5 Estimated GFR > 60 Random Glucose 110 (60-115) mg/dL Lactic Acid (0.5-2.0) mmol/L Calcium 8.3 L (8.4-10.2) mg/dL Magnesium 2.1 (1.6-2.6) mg/dL Total Bilirubin 1.2 H (0.0-1.0) mg/dL Direct Bilirubin 0.4 (0.0-0.5) mg/dL AST 26 (5-37) U/L ALT 65 H (0-40) U/L Alkaline Phosphatase 107 D (39-117) U/L Troponin I High Sens (<3.5-35.0) ng/L Total Protein 6.2 L (6.5-8.0) g/dL Albumin 3.3 L (3.5-5.0) g/dL Lipase 37 (8-78) U/L Urine Color Urine Appearance Urine pH (5.0-8.0) Ur Specific Trail (1.005-1.025) Urine Protein (NEG-TRACE) MG/DL Urine Glucose (UA) (NEG) MG/DL Urine Ketones (NEG) MG/DL Urine Blood (NEG) Urine Nitrite (NEG) Ur Leukocyte Esterase (NEG) Urine RBC (0) /HPF Urine WBC (0-4) /HPF Ur Squamous Epith Cells /LPF Urine Bacteria /LPF 05/15/20 05/15/20 05/15/20 Range/Units 15:52 15:52 20:03 WBC (4.8-10.8) X10*3/uL RBC (4.60-5.80) X10*6/uL Hgb (14.0-18.0) g/dl Hct (42-52) % MCV (80-98) fL MCH (27.0-33.0) pg MCHC (31.0-36.0) g/dl RDW (11.0-16.0) % Plt Count (160-400) X10*3/uL MPV (9.4-12.4) fL Immature Gran % (Auto) (0.0-0.4) % Neut % (Auto) (45-73) % Lymph % (Auto) (20-40) % [place] % (Auto) (2-11) % Eos % (Auto) (0-4) % Baso % (Auto) (0-2) % Lymph # (Auto) (1.2-4.9) X10*3/uL [place] # (Auto) (0.1-1.2) X10*3/uL Eos # (Auto) (0.0-0.4) X10*3/uL Baso # (Auto) (0.0-0.2) X10*3/uL Abs Immat Gran (auto) (0.00-0.03) X10*3/uL Absolute Neuts (auto) (2.0-8.3) X10*3/uL Absolute Nucleated RBC (0.0-0.012) X10*3/uL Nucleated RBC % (auto) (0.0-0.2) /100WBC PT (10.8-13.0) SEC INR (0.9-1.1) APTT (24.1-38.0) SEC Sodium (135-145) mmol/L Potassium (3.3-5.1) mmol/l Chloride (96-108) mmol/L Carbon Dioxide (22-29) mmol/L Anion Gap (12-20) BUN (9-16) mg/dL Creatinine (0.5-1.4) mg/dL Estim Creat Clear Calc Estimated GFR Random Glucose (60-115) mg/dL Lactic Acid 2.2 H* (0.5-2.0) mmol/L Calcium (8.4-10.2) mg/dL Magnesium (1.6-2.6) mg/dL Total Bilirubin (0.0-1.0) mg/dL Direct Bilirubin (0.0-0.5) mg/dL AST (5-37) U/L ALT (0-40) U/L Alkaline Phosphatase (39-117) U/L Troponin I High Sens 9.4 (<3.5-35.0) ng/L Total Protein (6.5-8.0) g/dL Albumin (3.5-5.0) g/dL Lipase (8-78) U/L Urine Color YELLOW Urine Appearance CLEAR Urine pH 6.0 (5.0-8.0) Ur Specific Trail 1.025 (1.005-1.025) Urine Protein NEG (NEG-TRACE) MG/DL Urine Glucose (UA) NEG (NEG) MG/DL Urine Ketones NEG (NEG) MG/DL Urine Blood NEG (NEG) Urine Nitrite NEG (NEG) Ur Leukocyte Esterase NEG (NEG) Urine RBC 0-2 (0) /HPF Urine WBC 0-2 (0-4) /HPF Ur Squamous Epith Cells NONE /LPF Urine Bacteria NONE /LPF Discharge Plan Discharge Clinical Impression: Adult failure to thrive syndrome Abdominal pain Qualifiers: Abdominal location: generalized Qualified Code(s): R10.84 - Generalized abdominal pain Patient Disposition: Admitted As Inpatient
[2020-05-15] MEDS: Milk of Magnesia 30 ML ORAL.SUSP PO (19:59)
[2020-05-15 20:00] VITALS: BP 130/64; PULSE 90; RESP 18; TEMP 36.6; O2SAT 94
[2020-05-15 20:11] LABS: Glucose Urine UA NEG (NEG); Leukocyte Esterase Urine NEG (NEG); Nitrite Urine NEG (NEG); Specific Gravity - Urine 1.025 (1.005-1.025); Urine Blood NEG (NEG); Urine Ketones NEG (NEG); Urine Protein NEG (NEG-TRACE)
[2020-05-15 20:14] LABS: Appearance Urine CLEAR; Color Urine YELLOW
[2020-05-15 20:20] LABS: RBC Urine 0-2 /HPF (0); WBC Urine 0-2 /HPF (0-4)
--- NOTE | 2020-05-15 20:48 | P.HPIM_ITS ---
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 He reports that he does not want admitted treat when asked about details about his radiation treatment 1000 that he had cancer. When asked what brought him into the hospital he says because he does not limit his treatment again. He also says he is constipated and that he does not eat because it hurts his belly. Otherwise he denies any fever or chills, no chest pain or shortness of breath, no nausea or vomiting. No urinary symptoms and no lower extremity. spoke to the over the phone who stated that ever since he was discharged from [facility] for treatment of lot new large metastatic brain lesion he has been confused and constipated. Patient currently sees Hematology-Oncology for management of his cancer and it is unclear to the if he is undergoing palliative radiation/chemotherapy and Would like this discussion to be had on this admission. is also okay with patient going to rehab if needed on arrival to the ED patient is hemodynamically stable with a heart rate of 103 otherwise unremarkable vital labs are significant for WBC count of 12.4, sodium of 131, lactic acid of 2.2, ALT of 65, negative UA, negative chest x-ray, abdominal CT done shows enlarged right adrenal gland consistent with metastatic disease and large volume of stool in the colon with no acute change of the bowel wall or bowel obstruction. of note patient was seen in our ED on was found to have a large metastatic mass with edema/shift in the brain and therefore was transferred to [facility] for further management at the recommendation of the oncologist. Past medical history: lung CA with Mets to the brain, currently on radiation/chemotherapy, asthma, GERD surgical history: Denies family history: Unknown social history: Comes from home lives with , former smoker, denies any illicit drugs or alcohol Review of Systems Review of Systems: Yes all other systems are reviewed and are negative [facility] Medical History (Updated 05/16/20 @ 06:31 by Ilene Curtis MD) COPD (chronic obstructive pulmonary disease) HCAP (healthcare-associated pneumonia) Lung cancer Non-small cell lung cancer metastatic to brain Social History Household Members: Spouse Housing: Apartment Alcohol intake: never Smoking Status: Former smoker Use of substances other than those prescribed or required for medical reasons: No Have you been hit, kicked, punched, or otherwise hurt by someone within the past year? If so, by whom?: No Do you feel safe in your current relationship?: Yes Is there a partner from a previous relationship who is making you feel unsafe now?: No Are you made to feel afraid or neglected: No Advance Directives: Yes Advance Directives on File: Yes Advance Directives Date on File: 07/21/19 Do you have thoughts of harming others: None Do you have a plan to hurt others: No Plan Recently lost weight without trying: Unsure service: No Current occupational status: retired [employer] Allergies Allergy/AdvReac Type Severity Reaction Status Date / Time No Known Allergies Allergy Verified 04/29/20 12:03 [No Known Allergies*] Home Medications Medication Instructions Recorded Confirmed Type albuterol sulfate [Ventolin HFA] 2 puff INHALATION Q4H PRN 04/20/20 05/15/20 History oxycodone 5 mg PO Q4H PRN 04/20/20 05/15/20 History prochlorperazine maleate 10 mg PO Q6H PRN 04/20/20 05/15/20 History [Compazine] ascorbic acid (vitamin C) 500 mg PO DAILY 04/29/20 05/15/20 History ferrous sulfate 325 mg PO DAILY 04/29/20 05/15/20 History omeprazole 20 mg PO BID@0630,1630 04/29/20 05/15/20 History dexamethasone [Decadron] 2 mg PO BID 05/15/20 05/15/20 History Physical Exam Vital Signs and Narrative: Vital Signs: Last Vital Signs Temp 98 F 05/15/20 20:00 Pulse 90 05/15/20 20:00 Resp 18 05/15/20 20:00 BP 130/64 05/15/20 20:00 Pulse Ox 94 05/15/20 20:00 Body Mass Index 21.8 Const: Other: confused, unable to keep straight thought General: cooperative and no acute distress Eyes: General: appearance normal, both eyes and all related structures Pupils: Equal, round and reactive pupils present Resp: Effort & Inspection: normal respiratory effort and able to speak in complete sentences Auscultation: clear to auscultation bilaterally Cardio: Rate: regular rate Rhythm: regular rhythm GI: Other: slightly distended, no rebound or guarding Palpation (GI): Soft to palpation Auscultation: normal bowel sounds Skin: General skin exam: no rashes or lesions noted Neuro: Cranial nerves: Yes Equal, round and reactive pupils present Cognition (Neuro): normal cognition Extrem: General: Yes normal to inspection and Yes no pedal edema Results Labs Labs: Laboratory Tests 05/15/20 05/15/20 05/15/20 15:52 15:52 15:52 WBC 12.4 H RBC 5.38 Hgb 15.7 Hct 45.9 MCV 85.3 MCH 29.2 MCHC 34.2 RDW 15.7 Plt Count 138 L MPV 7.8 L Immature Gran % (Auto) 4.2 H Neut % (Auto) 73.7 H Lymph % (Auto) 12.6 L [place] % (Auto) 9.2 Eos % (Auto) 0.0 Baso % (Auto) 0.3 Lymph # (Auto) 1.6 [place] # (Auto) 1.1 Eos # (Auto) 0.0 Baso # (Auto) 0.0 Abs Immat Gran (auto) 0.52 H Absolute Neuts (auto) 9.2 H Absolute Nucleated RBC 0.000 Nucleated RBC % (auto) 0.0 PT 12.8 INR 1.1 APTT 23.5 L Sodium 131 L Potassium 4.2 D Chloride 95 L Carbon Dioxide 26 Anion Gap 14 BUN 26 H Creatinine 0.65 Estim Creat Clear Calc 104.5 Estimated GFR > 60 Random Glucose 110 Lactic Acid Calcium 8.3 L Magnesium 2.1 Total Bilirubin 1.2 H Direct Bilirubin 0.4 AST 26 ALT 65 H Alkaline Phosphatase 107 D Troponin I High Sens Total Protein 6.2 L Albumin 3.3 L Lipase 37 Urine Color Urine Appearance Urine pH Ur Specific [place] Urine Protein Urine Glucose (UA) Urine Ketones Urine Blood Urine Nitrite Ur Leukocyte Esterase Urine RBC Urine WBC Ur Squamous Epith Cells Urine Bacteria 05/15/20 05/15/20 05/15/20 15:52 15:52 20:03 WBC RBC Hgb Hct MCV MCH MCHC RDW Plt Count MPV Immature Gran % (Auto) Neut % (Auto) Lymph % (Auto) [place] % (Auto) Eos % (Auto) Baso % (Auto) Lymph # (Auto) [place] # (Auto) Eos # (Auto) Baso # (Auto) Abs Immat Gran (auto) Absolute Neuts (auto) Absolute Nucleated RBC Nucleated RBC % (auto) PT INR APTT Sodium Potassium Chloride Carbon Dioxide Anion Gap BUN Creatinine Estim Creat Clear Calc Estimated GFR Random Glucose Lactic Acid 2.2 H* Calcium Magnesium Total Bilirubin Direct Bilirubin AST ALT Alkaline Phosphatase Troponin I High Sens 9.4 Total Protein Albumin Lipase Urine Color YELLOW Urine Appearance CLEAR Urine pH 6.0 Ur Specific [place] 1.025 Urine Protein NEG Urine Glucose (UA) NEG Urine Ketones NEG Urine Blood NEG Urine Nitrite NEG Ur Leukocyte Esterase NEG Urine RBC 0-2 Urine WBC 0-2 Ur Squamous Epith Cells NONE Urine Bacteria NONE Imaging CT scan - abdomen: Radiologist's impression: IMPRESSION: 1. Stable enlarged right adrenal gland consistent with metastatic disease. 2. Large volume of stool in the colon. No acute change of the bowel wall. No bowel obstruction. 3. Stable focal consolidation at the anterior right lung base. Honeycombing at lung bases bilaterally. Assessment and Plan (1) Abdominal pain: Qualifiers: Abdominal location: generalized Qualified Code(s): R10.84 - Generalized abdominal pain Status: Acute (2) Constipation: Status: Acute (3) Adult failure to thrive syndrome: Status: Acute (4) Non-small cell lung cancer metastatic to brain: Status: Inactive (5) COPD (chronic obstructive pulmonary disease): Status: Inactive this is a 69-year-old gentleman with past medical history of cancer who presents to the hospital with failure to thrive, low appetite, and constipation. # abdominal pain - most likely secondary to constipation, CT abdomen shows no obstruction, no colitis - patient is oxycodone for cancer pain is most likely causing him to lab opioid induced constipation - will start him on a bowel regimen of multiple medications to help him pass his bowels, Fleet enema is also ordered by the ED - will hold oxycodone at this time #constipation - most likely secondary to acute use, patient is on oxycodone for management cancer pain - bowel regimen ordered - hold oxycodone # failure to thrive - most likely in the setting of advanced cancer as patient now has multiple Mets to the brain as well as adrenal gland - no evidence of infection, afebrile, no leukocytosis, CT shows stable consolidation from previous studies - negative UA plan: - Will consult PT OT - discharge family for possible rehab placement - family is also okay for pectus placement patient has low appetite and is not eating # [id number] lung cancer metastatic to the brain - will continue Decadron - consult made to oncologist as patient's family would like to discuss prognosis and possible hospice placement # COPD - no acute exacerbation DVT prophylaxis: Heparin subcu
[2020-05-15 21:22] LABS: ~Lactic Acid-LAB USE ONLY 2.3 mmol/L (0.5-2.0)
[2020-05-15 22:18] LABS: SARS COV2 PCR INHOUSE NEGATIVE (Negative)
[2020-05-15 22:57] LABS: Reflex Lactate? 2 Y
[2020-05-15 23:46] VITALS: BP 124/62; PULSE 86; RESP 19; TEMP 37.1; O2SAT 95
[2020-05-15] MEDS: dexAMETHasone 2 MG TABLET PO (23:46)
[2020-05-15] MEDS: 0.9 % Sodium Chloride 1,000 ML 100 ML IVCONT (23:46)
[2020-05-15] MEDS: Docusate Sodium 100 MG CAPSULE PO (23:46)
[2020-05-15] MEDS: Sennosides 8.6 MG TABLET 17.2 MG PO (23:46)
[2020-05-15] MEDS: 0.9 % Sodium Chloride Flush 3 ML SYRINGE IVFLUSH (23:47)
[2020-05-15] MEDS: Heparin Sodium,Porcine 5,000 UNIT/ML VIAL 5000 UNIT SUBCUT (23:47)
[2020-05-16 00:23] LABS: ~Lactic Acid-LAB USE ONLY 1.4 mmol/L (0.5-2.0)
[2020-05-16] MEDS: Sodium Phosphate,Mono-Dibasic 133 ML ENEMA PR (01:56)
[2020-05-16 02:58] VITALS: BP 119/57; PULSE 89; RESP 19; TEMP 36.7; O2SAT 94
[2020-05-16 05:27] VITALS: BMI 21.9
[2020-05-16 06:35] LABS: MANUAL DIFF FLAG NO
[2020-05-16 07:09] LABS: Anion Gap 13 (12-20); Basophils Percent Auto 0.2 % (0-2); Blood Urea Nitrogen 18 mg/dL (9-16); Carbon Dioxide 25 mmol/L (22-29); Chloride 100 mmol/L (96-108); Creatinine Clr Calc Pharmacy 139.4; Estimated Glomerular Filt Rate > 60; Glucose Random 88 mg/dL (60-115); Hemoglobin 13.2 g/dl (14.0-18.0); Imm Gran Abs Auto 0.29 X10*3/uL (0.00-0.03); Imm Gran Pct Auto 2.7 % (0.0-0.4); Lymphocytes Absolute Auto 1.3 X10*3/uL (1.2-4.9); Lymphocytes Percent Auto 11.7 % (20-40); Mean Corpuscular HGB Conc 34.7 g/dl (31.0-36.0); Mean Corpuscular Hemoglobin 29.7 pg (27.0-33.0); Mean Corpuscular Volume 85.4 fL (80-98); Monocytes Absolute Auto 1.1 X10*3/uL (0.1-1.2); Monocytes Percent Auto 10.1 % (2-11); Neutrophils Absolute Auto 8.1 X10*3/uL (2.0-8.3); Neutrophils Percent Auto 75.3 % (45-73); Platelet Count 123 X10*3/uL (160-400); Red Blood Count 4.45 X10*6/uL (4.60-5.80); Red Cell Distribution Width 15.4 % (11.0-16.0); Sodium 134 mmol/L (135-145); White Blood Count 10.7 X10*3/uL (4.8-10.8)
[2020-05-16 07:11] VITALS: BP 113/54; PULSE 87; RESP 18; TEMP 36.5; O2SAT 95
[2020-05-16 07:25] LABS: Calcium 7.6 mg/dL (8.4-10.2)
[2020-05-16] MEDS: dexAMETHasone 2 MG TABLET PO ×2 (08:46→20:56)
[2020-05-16] MEDS: Milk of Magnesia 30 ML ORAL.SUSP PO (08:46)
[2020-05-16] MEDS: Heparin Sodium,Porcine 5,000 UNIT/ML VIAL 5000 UNIT SUBCUT ×2 (08:46→20:56)
[2020-05-16] MEDS: Docusate Sodium 100 MG CAPSULE PO ×2 (08:46→20:56)
[2020-05-16] MEDS: 0.9 % Sodium Chloride 1,000 ML 100 ML IVCONT (08:53)
[2020-05-16 11:50] VITALS: BP 120/73; PULSE 90; RESP 18; TEMP 36.4; O2SAT 95
--- NOTE | 2020-05-16 13:26 | MHC.CM.PN ---
IMM 05/16/20 MALE 69 DX LUNG CA W METS. Pt lives with Family. He requires assist and supervision, due to Brain tumor. DP home with hospice and [employer]. 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 Hospice referral made. CM will follow.
--- NOTE | 2020-05-16 13:41 | PM.HEMONCCN ---
Subjective - Subjective Chief complaint: consult for lung cancer with brain metastases Patient: known to practice within the last 3 years Primary Care Provider: None Physician Medical Summary: DIAGNOSIS: NON-SMALL CELL LUNG CARCINOMA WITH BRAIN METASTASES. PDL1 score: 20%. CURRENT THERAPY: Carboplatin and Gemzar, completed 6 cycles, December 29. Nivolumab, started January 12 , 01/26 was day 14. He had a reaction to it. Started pembrolizumab March 07. Hd 2nd dose, 04/09. JUST COMPLETED STEREOTACTIC RT TO THE BRAIN YESTERDAY. HPI - Consult Narrative Narrative: Francisco Peraza is a pleasant 69 year old gentleman, with a history of non-small cell lung carcinoma. he was recently noted to have brain metastases. he has been under the care of Dr. Stallworth at [facility]. he just finished his stereotactic RT to the brain yesterday. he presented last evening with constipation and loss of appetite. he does appear rather confused. his mental status appears to be fluctuating. He had a CT scan of the abdomen in the emergency room which revealed: 1. Stable enlarged right adrenal gland consistent with metastatic disease. 2. Large volume of stool in the colon. No acute change of the bowel wall. No bowel obstruction. 3. Stable focal consolidation at the anterior right lung base. Honeycombing at lung bases bilaterally. Concern was that the abdominal pain is most likely related to his constipation since there is no evidence of obstruction or colitis on the CT scan. he has been on oxycodone so likely is opioid induced constipation. A bowel regimen was ordered including Fleet enema. [facility], [facility] Medical History: Medical History (Last Updated 05/16/20 @ 06:31 by Ilene Curtis MD) COPD (chronic obstructive pulmonary disease) HCAP (healthcare-associated pneumonia) Lung cancer Non-small cell lung cancer metastatic to brain Smoking status: Former smoker Home Medications and Allergies Current Medications: Current Medications Generic Name Dose Route Start Last Admin Trade Name Freq PRN Reason Stop Dose Admin Acetaminophen 650 mg 05/15/20 21:54 Acetaminophen 325 Mg Tablet PO Q6H PRN Pain, Mild (Pain Scale 1-3) Albuterol Sulfate 2 puff 05/15/20 21:54 Albuterol Sulfate 90 Mcg 18 Gm Inhaler INHALE Q4H PRN Shortness Of Breath Or Wheezing Dexamethasone 2 mg 05/15/20 22:15 05/16/20 08:46 Dexamethasone 2 Mg Tablet PO 2 mg BID ITA Administration Docusate Sodium 100 mg 05/15/20 21:54 05/16/20 08:46 Docusate Sodium 100 Mg Capsule PO 100 mg BID ITA Administration Heparin Sodium (Porcine) 5,000 unit 05/15/20 21:54 05/16/20 08:46 Heparin Sodium,Porcine 5,000 Unit/Ml Vial SUBCUT 5,000 unit Q12H ITA Administration Sodium Chloride 1,000 mls @ 100 mls/hr 05/15/20 21:54 05/16/20 08:53 Ns IVCONT 100 mls/hr .Q10H ITA Administration Magnesium Hydroxide 30 ml 05/16/20 09:00 05/16/20 08:46 Milk Of Magnesia 30 Ml Oral.Susp PO 30 ml DAILY ITA Administration Ondansetron HCl 4 mg 05/15/20 21:54 Ondansetron Hcl 4 Mg/2 Ml Vial IVPUSH Q8H PRN Nausea and Vomiting Pharmacy Consult 1 each 05/15/20 14:50 Consult Rx Perform Med Rec MISCELLANE ONCE PRN Consult order Senna 17.2 mg 05/15/20 21:54 05/15/20 23:46 Sennosides 8.6 Mg Tablet PO 17.2 mg BEDTIME ITA Administration Sodium Chloride 3 ml 05/16/20 00:00 05/16/20 08:46 0.9 % Sodium Chloride Flush 3 Ml Syringe IVFLUSH Not Given QSHIFT [facility] Home Medications Medication Instructions Recorded Confirmed Type albuterol sulfate [Ventolin HFA] 2 puff INHALATION Q4H PRN 04/20/20 05/15/20 History oxycodone 5 mg PO Q4H PRN 04/20/20 05/15/20 History prochlorperazine maleate 10 mg PO Q6H PRN 04/20/20 05/15/20 History [Compazine] ascorbic acid (vitamin C) 500 mg PO DAILY 04/29/20 05/15/20 History ferrous sulfate 325 mg PO DAILY 04/29/20 05/15/20 History omeprazole 20 mg PO BID@0630,1630 04/29/20 05/15/20 History dexamethasone [Decadron] 2 mg PO BID 05/15/20 05/15/20 History Allergies Allergy/AdvReac Type Severity Reaction Status Date / Time No Known Allergies Allergy Verified 04/29/20 12:03 [No Known Allergies*] Physical Exam Vital signs: Vital Signs Temp 97.5 F 05/16/20 11:50 Pulse 90 05/16/20 11:50 Resp 18 05/16/20 11:50 BP 120/73 05/16/20 11:50 Pulse Ox 95 05/16/20 11:50 Intake & Output 05/15/20 05/16/20 05/16/20 18:59 06:59 18:59 Intake Total 1999 240 / 2240 1031.667 / 1031.667 Balance 1999 240 / 2240 1031.667 / 1031.667 Intake: Intake, Oral Amount 240 / 240 120 / 120 Intake, IV Amount 1999 911.667 / 911.667 0.9 % Sodium Chloride 1,000 ml 1999 911.667 / 911.667 @ 100 mls/hr IVCONT .Q10H [facility] Rx#:[id number] Other: Lunch % Eaten 25% Number of Incontinent Voids 1 Number of Bowel Movements 1 Weight 67 kg 67.4 kg Weight 67.4 kg - Constitutional Present: mild distress - Routine HEENT Exam Head: Present: normal inspection Eye: Present: normal appearance ENT: Present: mucous membranes moist - Routine Neck Exam Present: supple - Routine Respiratory Exam Present: decreased breath sounds, CTAB - Routine Cardiovascular Exam Cardiovascular: Present: RRR, S1, S2 - Routine Abdominal Exam Present: hypoactive bowel sounds, tenderness - Routine Rectal Exam Patient deferred: digital exam - Routine Extremities Exam Present: nontender - Routine Back/Spine/Pelvis Exam Back/Spine: Present: full ROM - Detailed Neurological Exam: Coma Scale Eye Opening: Spontaneous (4) Verbal Response: Confused (4) Motor Response: Obeys commands (6) Samm Coma Scale Total: 14 - Routine Psychiatric Exam Present: depressed, flat affect Hem/Onc Consult Result - Labs CBC & Chem 7: 05/16/20 05:56 05/16/20 05:56 Labs: Short CBC 05/15/20 05/16/20 Range/Units 15:52 05:56 WBC 12.4 H 10.7 (4.8-10.8) X10*3/uL Hgb 15.7 13.2 L (14.0-18.0) g/dl Hct 45.9 38.0 L (42-52) % Plt Count 138 L 123 L (160-400) X10*3/uL BMP 05/15/20 05/16/20 15:52 05:56 Sodium 131 L 134 L Potassium 4.2 D 4.0 Chloride 95 L 100 Carbon Dioxide 26 25 BUN 26 H 18 H Creatinine 0.65 0.49 L Calcium 8.3 L 7.6 L Liver Function 05/15/20 Range/Units 15:52 Total Bilirubin 1.2 H (0.0-1.0) mg/dL Direct Bilirubin 0.4 (0.0-0.5) mg/dL AST 26 (5-37) U/L ALT 65 H (0-40) U/L Alkaline Phosphatase 107 D (39-117) U/L Albumin 3.3 L (3.5-5.0) g/dL Urine 05/15/20 Range/Units 20:03 Urine Color YELLOW Urine Appearance CLEAR Urine pH 6.0 (5.0-8.0) Ur Specific [place] 1.025 (1.005-1.025) Urine Protein NEG (NEG-TRACE) MG/DL Urine Glucose (UA) NEG (NEG) MG/DL Assessment and Plan (1) Non-small cell lung cancer metastatic to brain Status: Acute This is a pleasant 69-year-old gentleman, with recent diagnosis of her lung mass, along with hilar adenopathy. CT scan of the chest from July 31 revealed: 1. Redemonstration of the left hilar/central lung mass as seen on the recent prior CT. There is also a prominent right hilar lymph node. 2. There is emphysema. Since the previous CT, there is increased bilateral lower lung consolidative and groundglass opacity. There is also septal thickening. This appearance could be associated with infectious/inflammatory process versus edema. 3. Indeterminate bilateral adrenal gland nodules. Adrenal protocol CT could be performed to further evaluate. Metastatic disease is possible. Bronchoscopic Biopsy revealed squamous cell carcinoma. PDL1 score is 20%. The patient had a PET scan on August 10 which revealed: Primary hypermetabolic left hilar mass as detailed above with extension from the left para-aortic space to the infrahilar space. There is a metastatic lymph node in the pretracheal space, metabolically active. Left lower lobe superior segment cystic and ground-glass attenuation lesion is metabolically active with measurements show above. There is a metastatic left adrenal nodule. l proceed with the biopsy of the left adrenal gland, to confirm that this is indeed metastatic. This came back positive on August 20. CT scan of the chest from November 03 revealed: 1. Large left mediastinal/hilar mass borderline larger when compared with CT chest 07/31/2019. Small mass superior segment left lower lobe without significant change. 2. Lower paratracheal nodes slightly larger 1.4 cm compared with 0.9 cm. No effusion. 3. Left left adrenal mass, PET avid, without significant change. I reviewed the results of the CT scan with the radiologist. They did not feel there is much progression. Scans appear stable. CT scan of the chest from January 01 revealed: No evidence of PE. No evidence of aortic dissection. Large hilar and supra hilar mass encasing and severely narrowing the left pulmonary arteries and the previous study. There is extensive mediastinal adenopathy especially the subcarinal and posterior carinal lymphadenopathy has significantly increased in size. There is likely right hilar lymph node as well with a known right paratracheal lymphadenopathy. There is increase in size of the right adrenal mass since previous study. The left adrenal mass is similar. Overall the exam shows worsening of metastatic adenopathy in the mediastinum. Imaging revealed progression. He was switched over to immunotherapy, Nivolumab every 2 weeks. He had disease progression for which she was switched to pembrolizumab. He has been doing quite well. He has tolerated it extremely well. The plan was to give him 3 months of treatment and then re-stage him with another set of imaging. However last month he developed brain metastases. he was referred to Dr. Stallworth at [facility]. he gave him stereotactic radiation therapy over 5 days, last treatment was yesterday. He has now been admitted for failure to thrive, abdominal pain and constipation. He is on a bowel regimen. he still has significant weakness, especially on his left side. PLAN: I had a detailed discussion with the and daughter. At this point they would like to bring him home with palliative care. Will see how his recovery is after the radiation. Will hold off on chemo for now. He will return to see me in the office in 2 weeks for a follow-up visit and to regroup. Thank you, CC: Dr. Queen. Dr. Sohan Beck. Dr. Otoniel De Jesus.
--- NOTE | 2020-05-16 14:13 | PM.DS ---
DS: Providers Provider Date of admission: 05/15/20 20:47 date of discharge/encounter: 05/17/2020 Primary care physician: None Physician Consults: 05/15/20 21:54 Consult to Physician Routine Consulting Provider: Ivis Tanner Reason for consultation: Metastatic cancer, worsening clinical status Has provider been notified: No DS: Diagnosis Discharge Diagnosis (1) Non-small cell lung cancer metastatic to brain: Status: Acute (2) Constipation: Status: Acute DS: Summary Hospital Course Hospital Course: Patient was admitted for constipation, he received Fleet enema and successfully a bowel movement. His abdominal pain has resolved and his appetite has improved. He will be discharged back home. Will follow-up with Oncology in 3 weeks. he will be discharged on palliative care with tentative plan to change to hospice at future date. Time Spent with Patient Time attestation: Total time spent providing and/or coordinating discharge services: Physical Exam Vital Signs: Vital Signs: Vital Signs Temp Pulse Resp BP Pulse Ox 05/16/20 11:50 97.5 F 90 18 120/73 95 05/16/20 07:11 97.7 F 87 18 113/54 L 95 05/16/20 02:58 98.1 F 89 19 119/57 L 94 05/15/20 23:46 98.7 F 86 19 124/62 95 05/15/20 20:00 98 F 90 18 130/64 94 05/15/20 17:59 97.7 F 81 14 140/75 H 96 05/15/20 15:59 16 05/15/20 14:42 97.8 F 103 H 18 137/83 95 Body Mass Index 21.9 General: AO X 3, no acute distress, ill appearing Resp: CTA bilateral CVS: S1,S2,RRR GI: soft, non tender, non distended Neuro: motor grossly intact Psych: appropriate affect DS: Data Data Completed and Pending Labs on day of discharge: Labs from last 24 hours 05/16/20 05/16/20 05/15/20 05:56 05:56 23:56 WBC 10.7 RBC 4.45 L Hgb 13.2 L Hct 38.0 L MCV 85.4 MCH 29.7 MCHC 34.7 RDW 15.4 Plt Count 123 L MPV 8.0 L Immature Gran % (Auto) 2.7 H Neut % (Auto) 75.3 H Lymph % (Auto) 11.7 L [place] % (Auto) 10.1 Eos % (Auto) 0.0 Baso % (Auto) 0.2 Lymph # (Auto) 1.3 [place] # (Auto) 1.1 Eos # (Auto) 0.0 Baso # (Auto) 0.0 Abs Immat Gran (auto) 0.29 H Absolute Neuts (auto) 8.1 Absolute Nucleated RBC 0.000 Nucleated RBC % (auto) 0.0 PT INR APTT Sodium 134 L Potassium 4.0 Chloride 100 Carbon Dioxide 25 Anion Gap 13 BUN 18 H Creatinine 0.49 L Estim Creat Clear Calc 139.4 Estimated GFR > 60 Random Glucose 88 Lactic Acid Lactic Acid Fup @ 2Hr Lactic Acid Fup @ 4Hr 1.4 Calcium 7.6 L Magnesium Total Bilirubin Direct Bilirubin AST ALT Alkaline Phosphatase Troponin I High Sens Total Protein Albumin Lipase Urine Color Urine Appearance Urine pH Ur Specific [place] Urine Protein Urine Glucose (UA) Urine Ketones Urine Blood Urine Nitrite Ur Leukocyte Esterase Urine RBC Urine WBC Ur Squamous Epith Cells Urine Bacteria Coronavirus (PCR) 05/15/20 05/15/20 05/15/20 21:18 20:52 20:03 WBC RBC Hgb Hct MCV MCH MCHC RDW Plt Count MPV Immature Gran % (Auto) Neut % (Auto) Lymph % (Auto) [place] % (Auto) Eos % (Auto) Baso % (Auto) Lymph # (Auto) [place] # (Auto) Eos # (Auto) Baso # (Auto) Abs Immat Gran (auto) Absolute Neuts (auto) Absolute Nucleated RBC Nucleated RBC % (auto) PT INR APTT Sodium Potassium Chloride Carbon Dioxide Anion Gap BUN Creatinine Estim Creat Clear Calc Estimated GFR Random Glucose Lactic Acid Lactic Acid Fup @ 2Hr 2.3 H* Lactic Acid Fup @ 4Hr Calcium Magnesium Total Bilirubin Direct Bilirubin AST ALT Alkaline Phosphatase Troponin I High Sens Total Protein Albumin Lipase Urine Color YELLOW Urine Appearance CLEAR Urine pH 6.0 Ur Specific [place] 1.025 Urine Protein NEG Urine Glucose (UA) NEG Urine Ketones NEG Urine Blood NEG Urine Nitrite NEG Ur Leukocyte Esterase NEG Urine RBC 0-2 Urine WBC 0-2 Ur Squamous Epith Cells NONE Urine Bacteria NONE Coronavirus (PCR) NEGATIVE 05/15/20 05/15/20 05/15/20 15:52 15:52 15:52 WBC RBC Hgb Hct MCV MCH MCHC RDW Plt Count MPV Immature Gran % (Auto) Neut % (Auto) Lymph % (Auto) [place] % (Auto) Eos % (Auto) Baso % (Auto) Lymph # (Auto) [place] # (Auto) Eos # (Auto) Baso # (Auto) Abs Immat Gran (auto) Absolute Neuts (auto) Absolute Nucleated RBC Nucleated RBC % (auto) PT 12.8 INR 1.1 APTT 23.5 L Sodium Potassium Chloride Carbon Dioxide Anion Gap BUN Creatinine Estim Creat Clear Calc Estimated GFR Random Glucose Lactic Acid 2.2 H* Lactic Acid Fup @ 2Hr Lactic Acid Fup @ 4Hr Calcium Magnesium Total Bilirubin Direct Bilirubin AST ALT Alkaline Phosphatase Troponin I High Sens 9.4 Total Protein Albumin Lipase Urine Color Urine Appearance Urine pH Ur Specific [place] Urine Protein Urine Glucose (UA) Urine Ketones Urine Blood Urine Nitrite Ur Leukocyte Esterase Urine RBC Urine WBC Ur Squamous Epith Cells Urine Bacteria Coronavirus (PCR) 05/15/20 05/15/20 15:52 15:52 WBC 12.4 H RBC 5.38 Hgb 15.7 Hct 45.9 MCV 85.3 MCH 29.2 MCHC 34.2 RDW 15.7 Plt Count 138 L MPV 7.8 L Immature Gran % (Auto) 4.2 H Neut % (Auto) 73.7 H Lymph % (Auto) 12.6 L [place] % (Auto) 9.2 Eos % (Auto) 0.0 Baso % (Auto) 0.3 Lymph # (Auto) 1.6 [place] # (Auto) 1.1 Eos # (Auto) 0.0 Baso # (Auto) 0.0 Abs Immat Gran (auto) 0.52 H Absolute Neuts (auto) 9.2 H Absolute Nucleated RBC 0.000 Nucleated RBC % (auto) 0.0 PT INR APTT Sodium 131 L Potassium 4.2 D Chloride 95 L Carbon Dioxide 26 Anion Gap 14 BUN 26 H Creatinine 0.65 Estim Creat Clear Calc 104.5 Estimated GFR > 60 Random Glucose 110 Lactic Acid Lactic Acid Fup @ 2Hr Lactic Acid Fup @ 4Hr Calcium 8.3 L Magnesium 2.1 Total Bilirubin 1.2 H Direct Bilirubin 0.4 AST 26 ALT 65 H Alkaline Phosphatase 107 D Troponin I High Sens Total Protein 6.2 L Albumin 3.3 L Lipase 37 Urine Color Urine Appearance Urine pH Ur Specific [place] Urine Protein Urine Glucose (UA) Urine Ketones Urine Blood Urine Nitrite Ur Leukocyte Esterase Urine RBC Urine WBC Ur Squamous Epith Cells Urine Bacteria Coronavirus (PCR) Discharge Plan Discharge Patient Disposition: Home Health Service Referrals: [facility] [Outside] Physician,None [Primary Care Provider] - Discharge Medications: New psyllium Packet 2 packet PO TID Qty: 500 RF: 0 Continued dexamethasone [Decadron] 4 mg tablet 2 mg PO BID RF: 0 prochlorperazine maleate [Compazine] 10 mg Tablet 10 mg PO Q6H PRN (Reason: Nausea And Vomiting) RF: 0 oxycodone 5 mg Tablet 5 mg PO Q4H PRN (Reason: Pain) RF: 0 albuterol sulfate [Ventolin HFA] 90 mcg/actuation Hfa Aerosol Inhaler 2 puff INHALATION Q4H PRN (Reason: Shortness Of Breath Or Wheezing) RF: 0 ascorbic acid (vitamin C) 500 mg Tablet 500 mg PO DAILY RF: 0 ferrous sulfate 325 mg (65 mg iron) Tablet 325 mg PO DAILY RF: 0 omeprazole 20 mg Capsule,Delayed Release(Dr/Ec) 20 mg PO BID@0630,1630 RF: 0 Discharge Orders: Discharge Order (Routine); Ordered 05/16/20 Ordered By: Juan Daniel Gamboa Diet: advance to your usual diet Activity on Discharge: As tolerated Visit Report Forms: Patient Portal Discharge page Care Plan Goals: avoid constipation Health Concerns: constipation Plan of Treatment: psyllium
--- NOTE | 2020-05-16 15:06 | HO.PM.IMPN ---
Subjective Subjective Date of Service: 05/16/20 Interval History: resolved Cardiovascular Cardiovascular: Reports no additional cardiovascular complaints Respiratory Respiratory: Reports no additional respiratory complaints General: AO X 3, no acute distress Resp: CTA bilateral CVS: S1,S2,RRR GI: soft, non tender, non distended Neuro: motor grossly intact Psych: appropriate affect Physical Exam Vital Signs: Vital Signs: Vital Signs Temp Pulse Resp BP Pulse Ox 05/16/20 11:50 97.5 F 90 18 120/73 95 05/16/20 07:11 97.7 F 87 18 113/54 L 95 05/16/20 02:58 98.1 F 89 19 119/57 L 94 05/15/20 23:46 98.7 F 86 19 124/62 95 05/15/20 20:00 98 F 90 18 130/64 94 05/15/20 17:59 97.7 F 81 14 140/75 H 96 05/15/20 15:59 16 Body Mass Index 21.9 Objective Data Current Medications Generic Name Dose Route Start Last Admin Trade Name Freq PRN Reason Stop Dose Admin Acetaminophen 650 mg 05/15/20 21:54 Acetaminophen 325 Mg Tablet PO Q6H PRN Pain, Mild (Pain Scale 1-3) Albuterol Sulfate 2 puff 05/15/20 21:54 Albuterol Sulfate 90 Mcg 18 Gm Inhaler INHALE Q4H PRN Shortness Of Breath Or Wheezing Dexamethasone 2 mg 05/15/20 22:15 05/16/20 08:46 Dexamethasone 2 Mg Tablet PO 2 mg BID ITA Administration Docusate Sodium 100 mg 05/15/20 21:54 05/16/20 08:46 Docusate Sodium 100 Mg Capsule PO 100 mg BID ITA Administration Heparin Sodium (Porcine) 5,000 unit 05/15/20 21:54 05/16/20 08:46 Heparin Sodium,Porcine 5,000 Unit/Ml Vial SUBCUT 5,000 unit Q12H ITA Administration Sodium Chloride 1,000 mls @ 100 mls/hr 05/15/20 21:54 05/16/20 08:53 Ns IVCONT 100 mls/hr .Q10H ITA Administration Magnesium Hydroxide 30 ml 05/16/20 09:00 05/16/20 08:46 Milk Of Magnesia 30 Ml Oral.Susp PO 30 ml DAILY ITA Administration Ondansetron HCl 4 mg 05/15/20 21:54 Ondansetron Hcl 4 Mg/2 Ml Vial IVPUSH Q8H PRN Nausea and Vomiting Pharmacy Consult 1 each 05/15/20 14:50 Consult Rx Perform Med Rec MISCELLANE ONCE PRN Consult order Senna 17.2 mg 05/15/20 21:54 05/15/20 23:46 Sennosides 8.6 Mg Tablet PO 17.2 mg BEDTIME ITA Administration Sodium Chloride 3 ml 05/16/20 00:00 05/16/20 08:46 0.9 % Sodium Chloride Flush 3 Ml Syringe IVFLUSH Not Given QSHIFT [facility] Labs CBC & Chem 7: 05/16/20 05:56 05/16/20 05:56 Assessment and Plan (1) Non-small cell lung cancer metastatic to brain: Status: Acute (2) Constipation: Status: Acute Assessment and Plan: 69-year-old gentleman with past medical history of cancer who presented to the hospital with failure to thrive, low appetite, and constipation. abdominal pain and constipation resolved after enema FTT due to metastatic NSCLC plan for hospice eval, possible dc home tomorrow on hospice COPD - no acute exacerbation
[2020-05-16 15:41] VITALS: BP 119/57; PULSE 94; RESP 18; TEMP 36.7; O2SAT 95
[2020-05-16 19:30] VITALS: BP 124/57; PULSE 106; RESP 20; TEMP 36.7; O2SAT 96
[2020-05-16] MEDS: Sennosides 8.6 MG TABLET 17.2 MG PO (20:56)
[2020-05-16 23:01] VITALS: BP 104/57; PULSE 80; RESP 19; TEMP 36.1; O2SAT 96
[2020-05-17 03:15] VITALS: BP 107/61; PULSE 80; RESP 19; TEMP 36; O2SAT 95
[2020-05-17 06:00] VITALS: BMI 22.1
[2020-05-17 06:56] VITALS: BP 111/60; PULSE 92; RESP 18; TEMP 36.4; O2SAT 96
--- NOTE | 2020-05-17 08:41 | MHC.CM.PN ---
pt being dcd today with [facility] for pallative care pt to be transported home by family
[2020-05-17] MEDS: Heparin Sodium,Porcine 5,000 UNIT/ML VIAL 5000 UNIT SUBCUT (08:52)
[2020-05-17] MEDS: Milk of Magnesia 30 ML ORAL.SUSP PO (08:52)
[2020-05-17] MEDS: Docusate Sodium 100 MG CAPSULE PO (08:52)
[2020-05-17] MEDS: dexAMETHasone 2 MG TABLET PO (08:52)
--- NOTE | 2020-05-17 10:18 | MHC.CM.PN ---
pt dc home with pallative care thru [facility] today by christopher at 11:30 confirmed with that she will be home [facility] notified of dc
== END 2020-05-17 11:41 | disposition home health service (06) | DRG 392 ==
LOC: HO.ED 21:15 → HO.IMC 21:45
PROVIDERS: Emergency Medicine; Admitting Provider Internal Medicine; Emergency Provider Internal Medicine; Visit Provider Internal Medicine
DX: K59.03 Drug induced constipation (principal); C34.90 Malignant neoplasm of unspecified part of unspecified bronchus or lung; C79.31 Secondary malignant neoplasm of brain; T40.2X5A Adverse effect of other opioids, initial encounter; Z79.891 Long term (current) use of opiate analgesic; Y92.009 Unspecified place in unspecified non-institutional (private) residence as the place of occurrence of the external cause; J44.9 Chronic obstructive pulmonary disease, unspecified; R62.7 Adult failure to thrive; Z68.22 Body mass index [BMI] 22.0-22.9, adult; Z20.828 Contact with and (suspected) exposure to other viral communicable diseases; Z87.891 Personal history of nicotine dependence; Z79.899 Other long term (current) drug therapy
CPT/HCPCS: 36415; 71045; 74176; 80048; 80076; 81003; 81015; 83605; 83690; 83735; 84484; 85025; 85610; 85730; 87040; 87635; 93005; 96361; 96374; 96375; 97110; 97163; 97167; 99285; J2270; J2405; J8540

== ENCOUNTER → 2024-03-16 13:40 | Outpatient (RCR) | payer MEDICARE, OTHER, SELFPAY ==
[2020-04-20 09:22] VITALS: BMI 27.6
[2020-04-20 09:23] VITALS: BP 141/64; PULSE 109; RESP 20; TEMP 37.1; O2SAT 97
--- NOTE | 2020-04-20 10:38 | P.PNHO_ITS ---
Medical Summary - Medical Summary Chief complaint: follow-up for: brain metastases, from non-small cell lung cancer. Medical Summary: DIAGNOSIS: Squamous cell carcinoma of the lung. PDL1 score: 20%. CURRENT THERAPY: Carboplatin and Gemzar, completed 6 cycles, December 29. Nivolumab, started January 12 , 01/26 was day 14. He had a reaction to it. Started pembrolizumab March 07. Had 2nd dose on 03/28. Recently diagnosed with brain metastases. to receive stereotactic radiation therapy at [facility]. Interval History Interval history: patient was seen in the emergency room on April 05 with the following: Chief Complaint: HEADACHE, NUMBNESS and WEAKNESS. This started 3 days ago. At its maximum, severity described as moderate. When seen in the E.D., severity described as moderate. Modifying factors- worsened by walking. Not relieved by anything. The patient has had a headache ( very mild ). CT scan of the head revealed: This exam is abnormal. There is a large lesion within the norman with adjacent edema and mass effect extending up into the cerebral peduncle on the right with local mass effect. There is another smaller lesion felt be present in the left parietal region. He was transferred to [facility]. he was started on Decadron. he is currently on 4 mg p.o. b.i.d. he has been evaluated by radiation therapy there. he actually had an MRI of the brain done yesterday at [facility]. this revealed: Interval enlargement of to intraparenchymal masses: left frontoparietal measuring 23 x 20 x 20 mm. enhancing phone time mass 23 x 19 x 27 mm. no midline shift, hydrocephalus or effacement of the basal cisterns. he underwent simulation on 04/14. the plan is to proceed with stereotactic radiation: in 5 fractions to the norman. and in 3 fractions to the parietal mass. treatment is to begin on May 02. he will be maintained on the same Decadron dose till then. subsequently after completion of this stereotactic radiation, Decadron will be tapered down to 2 mg b.i.d. for 1 week. then 2 mg daily for 1 week. then 2 mg every other day for a week and then stop. he tells me he is feeling well. he denies any further headaches. he has generalized numbness and weakness. he denies any dizziness. No chest pain or trouble breathing. Denies abdominal pain nausea vomiting heartburn indigestion. His bowels are working without any gross blood in it. he enjoys a good appetite. His weight is stable. He is in good spirits. Rest of the review of systems is unremarkable. Home Medications and Allergies Home Medications Medication Instructions Recorded Confirmed Type albuterol sulfate [Ventolin HFA] 2 puff INHALATION Q4H PRN 04/20/20 04/20/20 History oxycodone 5 mg PO Q4H PRN 04/20/20 04/20/20 History prochlorperazine maleate 10 mg PO Q6-8H PRN 04/20/20 04/20/20 History [Compazine] Allergies Allergy/AdvReac Type Severity Reaction Status Date / Time No Known Allergies Allergy Unverified 04/06/20 15:02 [No Known Allergies*] Exam Vital signs: Vital Signs Temp 98.7 F 04/20/20 09:23 Pulse 109 H 04/20/20 09:23 Resp 20 04/20/20 09:23 BP 141/64 H 04/20/20 09:23 Pulse Ox 97 04/20/20 09:23 Intake & Output 04/19/20 04/20/20 04/20/20 18:59 06:59 18:59 Other: Weight 70.817 kg Weight 70.817 kg Body Mass Index 27.6 - Constitutional Present: no acute distress - Routine HEENT Exam Head: Present: normal inspection ENT: Present: mucous membranes moist - Routine Neck Exam Present: full ROM - Routine Respiratory Exam Present: CTAB - Routine Cardiovascular Exam Cardiovascular: Present: RRR, S1, S2 - Routine Abdominal Exam Present: soft, nontender - Routine Rectal Exam Patient deferred: digital exam Data - Labs CBC & Chem 7: 04/20/20 10:38 04/20/20 10:38 Progress Note: A/P (1) Non-small cell lung cancer metastatic to brain Status: Acute Assessment and plan: This is a pleasant 69-year-old gentleman, with recent diagnosis of her lung mass, along with hilar adenopathy. CT scan of the chest from July 31 revealed: 1. Redemonstration of the left hilar/central lung mass as seen on the recent prior CT. There is also a prominent right hilar lymph node. 2. There is emphysema. Since the previous CT, there is increased bilateral lower lung consolidative and groundglass opacity. There is also septal thickening. This appearance could be associated with infectious/inflammatory process versus edema. 3. Indeterminate bilateral adrenal gland nodules. Adrenal protocol CT could be performed to further evaluate. Metastatic disease is possible. Bronchoscopic Biopsy revealed squamous cell carcinoma. PDL1 score is 20%. The patient had a PET scan on August 10 which revealed: Primary hypermetabolic left hilar mass as detailed above with extension from the left para-aortic space to the infrahilar space. There is a metastatic lymph node in the pretracheal space, metabolically active. Left lower lobe superior segment cystic and ground-glass attenuation lesion is metabolically active with measurements show above. There is a metastatic left adrenal nodule. l proceed with the biopsy of the left adrenal gland, to confirm that this is indeed metastatic. This came back positive on August 20. CT scan of the chest from January 01 revealed: No evidence of PE. No evidence of aortic dissection. Large hilar and supra hilar mass encasing and severely narrowing the left pulmonary arteries and the previous study. There is extensive mediastinal adenopathy especially the subcarinal and posterior carinal lymphadenopathy has significantly increased in size. There is likely right hilar lymph node as well with a known right paratracheal lymphadenopathy. There is increase in size of the right adrenal mass since previous study. The left adrenal mass is similar. Overall the exam shows worsening of metastatic adenopathy in the mediastinum. Imaging revealed progression. He has been switched over to immunotherapy, Nivolumab every 2 weeks. he tolerated it well however on April 05 he went to the ER for headache. was noted to have brain metastases. he has been stable on Decadron with decreased edema. PLAN: Plan is to proceed with stereotactic radiation therapy starting May 02 at [facility] under the care of . He will receive stereotactic radiation in 5 fractions to the norman and 3 fractions to the parietal lobe lesion. he will continue on the Decadron 4 mg b.i.d. for now. his prescription was renewed. This will be tapered after the stereotactic radiation, as detailed above. He will continue on the pembrolizumab. Thank you, CC: Dr. Queen. Dr. Sohan Beck. Dr. Otoniel De Jesus. - Time Spent With Patient Total time spent is greater than 50% in coordination of care (as documented) at patient's floor/unit and/or counseling patient: 15 - 24 minutes
[2020-04-20 10:56] LABS: Basophils Absolute Auto 0.1 X10*3/uL (0.0-0.2); Basophils Percent Auto 0.3 % (0-2); Hematocrit 45.5 % (42-52); Hemoglobin 15.4 g/dl (14.0-18.0); Imm Gran Abs Auto 0.82 X10*3/uL (0.00-0.03); Lymphocytes Absolute Auto 1.4 X10*3/uL (1.2-4.9); Lymphocytes Percent Auto 5.3 % (20-40); MANUAL DIFF FLAG SCAN; Mean Corpuscular HGB Conc 33.8 g/dl (31.0-36.0); Mean Corpuscular Hemoglobin 29.4 pg (27.0-33.0); Mean Corpuscular Volume 86.8 fL (80-98); Mean Platelet Volume 7.7 fL (9.4-12.4); Monocytes Absolute Auto 2.5 X10*3/uL (0.1-1.2); Monocytes Percent Auto 9.2 % (2-11); Neutrophils Absolute Auto 22.4 X10*3/uL (2.0-8.3); Neutrophils Percent Auto 82.2 % (45-73); Platelet Count 233 X10*3/uL (160-400); Red Blood Count 5.24 X10*6/uL (4.60-5.80); SCAN SMEAR FLAG 1; White Blood Count 27.2 X10*3/uL (4.8-10.8)
[2020-04-20 11:29] LABS: Alanine Aminotransferase 147 U/L (0-40); Albumin Level 3.5 g/dL (3.5-5.0); Alkaline Phosphatase 94 U/L (39-117); Anion Gap 15 (12-20); Aspartate Amino Transferase 28 U/L (5-37); Bilirubin Total 0.9 mg/dL (0.0-1.0); Blood Urea Nitrogen 37 mg/dL (9-16); Calcium 8.3 mg/dL (8.4-10.2); Carbon Dioxide 23 mmol/L (22-29); Chloride 100 mmol/L (96-108); Creatinine Clr Calc Pharmacy 80.1; Estimated Glomerular Filt Rate > 60; Glucose Random 136 mg/dL (60-115); Potassium 4.3 mmol/l (3.3-5.1); Sodium 134 mmol/L (135-145); Total Protein 6.3 g/dL (6.5-8.0)
[2020-04-20 12:17] LABS: SLIDE REVIEW VERIFIED
--- NOTE | 2020-04-20 17:00 | MHC.HEMONC ---
per patient, pt will start radiation on MAY 02. Requested MRI for Dr. De Los Santos. Pt to continue Decadron, refill completed.
--- NOTE | 2020-04-21 09:56 | MHC.HEMONCSW ---
PT WITH NEWLY DIAGNOSED BRAIN METASTASES. ALERT, ANXIOUS AT TIMES. ACCOMPANIES PT SHE UNDERSTANDS MORE THAN HE. SUPPORTIVE COUNSELING PROVIDED. DID NOT ADDRESS MOLST AT THIS TIME DUE TO MENTATION. THEY ARE AWARE OF MY AVAILABILITY.
== END | disposition home or self-care (01) ==
LOC: HO.ONC 04-20 09:05
PROVIDERS: Visit Provider Internal Medicine Medical Oncology
DX: C34.02 Malignant neoplasm of left main bronchus (principal); C77.1 Secondary and unspecified malignant neoplasm of intrathoracic lymph nodes; C79.31 Secondary malignant neoplasm of brain; C79.72 Secondary malignant neoplasm of left adrenal gland; J43.9 Emphysema, unspecified; Z79.899 Other long term (current) drug therapy
CPT/HCPCS: 36415; 80053; 85025